=== PATIENT | female | born 1950 | race Caucasian/White ===

== ENCOUNTER 2017-07-28 01:20 | Inpatient (IN) | payer MEDICARE ==
[2017-07-28 01:55] LABS: #Lymphocytes 2.2 thou/uL (1.20-3.40); #Neutrophils 14.8 thou/uL (1.40-6.50); %Basophils 0.2 % (0.0-1.0); %Eosinophils 0.2 % (0.0-10.0); %Monocytes 5.5 % (0.0-10.0); Hematocrit 43.7 % (36.0-47.0); Mean Platelet Volume 8.1 fL (7.4-10.4); Red Blood Cell (RBC) Count 4.64 mill/uL (4.20-5.40)
[2017-07-28 02:15] LABS: ALT (SGPT) 11 U/L (8-55); AST (SGOT) 14 U/L (5-34); Alkaline Phosphatase 93 U/L (40-150); Anion Gap 14 mmol/L (10-20); BUN (Urea Nitrogen) 13 mg/dL (9.8-20.1); Bilirubin, Total 0.8 mg/dL (0.2-1.2); Calc. Creatinine Clearance 0 mL/min (70-130); Calcium 10.1 mg/dL (7.8-10.44); Carbon Dioxide 27 mmol/L (23-31); Chloride 97 mmol/L (98-107); Estimated GFR-MDRD 56; Globulin 3.9 g/dL (2.4-3.5); Protein, Total 7.8 g/dL (6.0-8.3)
[2017-07-28 02:32] LABS: Troponin I Less than 0.010 ng/mL (< 0.028)
[2017-07-28 04:16] VITALS: BMI 32.4
[2017-07-28] MEDS ORDERED: Acetaminophen 325 MG TAB PO PRN (04:56)
[2017-07-28] MEDS ORDERED: Ondansetron HCl/PF 4 MG/2 ML Vial IVP PRN (04:56)
[2017-07-28] MEDS ORDERED: Ondansetron ODT 4 MG TAB SL PRN (04:56)
--- NOTE | 2017-07-28 05:42 | PDOC.EVN ---
Event Note - Event Note Event Note: [id number] H&P Dictated 1. Possible Pneumonia 2. H/O HTN 3. H/O DM type 2 4. Rt side rib cage pain plan: see orders
[2017-07-28] MEDS ORDERED: Dextrose 50% Abboject 50 ML SYRINGE SLOW IVP PRN (06:23)
[2017-07-28] MEDS ORDERED: HumaLOG 300 UNITS/3 ML VIAL SC PRN (06:23)
[2017-07-28] MEDS ORDERED: Dextrose 5% in Water 1,000 ML IV PRN (06:23)
[2017-07-28] MEDS ORDERED: cefTRIAXone\\ROCEPHIN 1 GM in Sodium Chloride 0.9% 100 ML IVPB SCH (06:30)
--- NOTE | 2017-07-28 06:33 | HP ---
CHIEF COMPLAINT: Cough, rib pain. HISTORY OF PRESENT ILLNESS: The patient started having cough 2 weeks back. Cough persisted, cough is disturbing the sleep also. The patient cough persisted with sputum production, sputum green. Co mplains of chest congestion. The patient started having diffuse chest pain from the rib cage pain, more pronounced on the right side. The patient's pain is moderate to severe in intensity, worsened with coughing and breathing, denies any fever. Denies any chills. Denies any nausea, denies vomit ing, denies diarrhea, complaints of dyspnea with exertion and complains of some dizziness with the c ough also. PAST MEDICAL HISTORY: Diabetes type 2, hypertension, hyperlipidemia. PAST SURGICAL HISTORY: Appendectomy, hysterectomy. SOCIAL HISTORY: Positive for smoking, denies alcohol, denies any drugs. FAMILY HISTORY: Positive for heart problems. REVIEW OF SYSTEMS: CONSTITUTIONAL: Denies any fever, denies any chills. EYES: No vision problems. Ears, no hearing loss. No neck pain. CARDIOVASCULAR: Denies any chest pain. RESPIRATORY SYSTEM: Positive for pleurisy. Positive for cough, positive for sputum production. INTEGUMENT Denies any rash. PSYCHIATRIC: Denies anxiety. CRANIAL NERVE SYSTEM: Denies syncope. All other review of systems are reviewed and are negative. PHYSICAL EXAMINATION: VITAL SIGNS: At the time of H\T\P performed; temperature 98.3, pulse 80, respiration of 20, pulse o x 93% on 2 liters. Blood pressure 133/60. GENERAL: The patient appears comfortable. HEENT: Pupils equal, round, and react to light. ENT patent. Nose normal. Ears normal. Teeth in tact. Tongue is moist. NECK: Supple, no JVD. CARDIOVASCULAR: S1, S2 present. Regular rate and rhythm, no murmurs, no rubs, no gallops. RESPIRATORY SYSTEM: The right side, diminished breath sounds present. Positive for crackles. No w heezing, no rhonchi. GASTROINTESTINAL: Abdomen is soft, nontender, no guarding, no organomegaly, no masses felt. ABDOMEN: Soft, nontender, no guarding, no organomegaly, no masses felt. MUSCULOSKELETAL: No edema. INTEGUMENTARY: No rashes seen. PSYCHIATRIC: Mood is appropriate at this time. LABORATORY: Lab at the time of H\T\P performed; sodium 134, potassium 4.3, chloride 97, CO2 37, BUN of 13, creatinine 0.9, calcium 10.1, AST 14, ALT 11, alkaline phosphatase 93, serum total protein 7 .8, albumin 3.9. CBC; white count 18, platelet count is 287, hemoglobin 14.4. Chest x-ray, right-side possible infiltrate lower lobe, middle lobe. ASSESSMENT AND PLAN: The patient is 67 years old female. 1. Acute bronchitis with possible pneumonia. Plan to start patient on IV Rocephin and Zithromax. Plan to check CT chest to evaluate the infiltrate. We will monitor the patient closely. 2. Right-sided rib cage pain. Probably from the prolonged coughing. We will check serial cardiac enzymes. EKG, no acute ST changes. We will check repeat x-rays also. 3. History of hypertension. Monitor blood pressure. We will start the patient on blood pressure m edication. 4. History of diabetes type 2. Monitor blood sugars. We will do insulin sliding scale. 5. History of hyperlipidemia. Continue statins. The case was discussed in detail with the patient. The patient is full code.
[2017-07-28] MEDS ORDERED: Lisinopril 10 MG TAB PO SCH (09:00)
[2017-07-28] MEDS ORDERED: cefTRIAXone\\ROCEPHIN 1 GM, Admixture Fee 1 EACH in Sodium Chloride 0.9% 100 ML IVPB SCH (09:00)
[2017-07-28] MEDS: Sodium Chloride 0.9% 1,000 ML IV SCH (09:30)
[2017-07-28] MEDS: Heparin 5,000 UNITS/ML VIAL SC SCH ×3 (09:31→20:11)
[2017-07-28] MEDS: glyBURIDE 5 MG TAB PO SCH ×2 (09:31→20:11)
[2017-07-28] MEDS: Azithromycin 500 MG in Sodium Chloride 0.9% 250 ML 250 ML IVPB SCH (10:04)
--- NOTE | 2017-07-28 10:17 | PDOC.PN ---
- Subjective Encounter Start Date: 07/28/17 Encounter Start Time: 10:16 Patient seen and examined. No new complaints. No overnight events - Objective MAR Reviewed: Yes Vital Signs & Weight: Vital Signs (12 hours) Temp Pulse Resp BP BP Pulse Ox 07/28/17 09:31 116/58 L 07/28/17 04:11 98.3 F 80 20 126/60 93 L 07/28/17 04:10 98.3 F 80 20 93 L Weight Weight 171 lb 12.8 oz I&O: 07/27/17 07/28/17 07/29/17 06:59 06:59 06:59 Intake Total 100 Output Total 0 Balance 100 Result Diagrams: 07/28/17 01:47 07/28/17 01:47 Additional Labs: Accuchecks 07/28/17 06:02 POC Glucose 156 H EKG Reviewed by me: Yes (Tele SR) Phys Exam - Physical Examination Constitutional: NAD Respiratory: no wheezing Scar rhonchi/rales Cardiovascular: RRR, no rub Gastrointestinal: soft, non-tender, positive bowel sounds Musculoskeletal: no edema Neurological: non-focal, moves all 4 limbs Psychiatric: A&O x 3 Dx/Plan (1) Acute respiratory failure with hypoxia Code(s): J96.01 - ACUTE RESPIRATORY FAILURE WITH HYPOXIA Status: Acute Comment: due to Pneumonia (2) Sepsis due to pneumonia Code(s): J18.9 - PNEUMONIA, UNSPECIFIED ORGANISM; A41.9 - SEPSIS, UNSPECIFIED ORGANISM Status: Acute Comment: suspected Pneumococcus (3) Tobacco dependence Code(s): F17.200 - NICOTINE DEPENDENCE, UNSPECIFIED, UNCOMPLICATED Status: Chronic (4) DM2 (diabetes mellitus, type 2) Status: Chronic (5) HLD (hyperlipidemia) Code(s): E78.5 - HYPERLIPIDEMIA, UNSPECIFIED Status: Chronic (6) HTN (hypertension) Code(s): I10 - ESSENTIAL (PRIMARY) HYPERTENSION Status: Chronic - Plan cont current plan of care, continue antibiotics, DVT proph w/heparin, DVT proph w/SCDs * Admission/Pneumonia order set added * Add PRN meds/nebs * PSI score 65 * CURB 65 score 1 * Transfer to medical - No cardiac issues. No abnormal tele rhythm Review of Systems - Medications/Allergies Allergies/Adverse Reactions: Allergies Allergy/AdvReac Type Severity Reaction Status Date / Time No Known Allergies Allergy Unverified 07/28/17 04:21 Medications: Current Medications Acetaminophen (Tylenol) 650 mg PO Q4H PRN PRN Reason: Headache/Fever or Pain Stop: 07/28/17 14:45 Albuterol/Ipratropium (Duoneb) 3 ml NEB Q4H PRN PRN Reason: SOB &/or Wheezing Stop: 07/28/17 14:45 Atorvastatin Calcium (Lipitor) 10 mg PO HS [facility] Dextrose/Water (Dextrose 50%) 25 gm SLOW IVP PRN PRN PRN Reason: Hypoglycemia Glucagon (Glucagon) 1 mg IM PRN PRN PRN Reason: Hypoglycemia Glyburide (Diabeta) 5 mg PO BID [facility] Last Admin: 07/28/17 09:31 Dose: 5 mg Heparin Sodium (Porcine) (Heparin) 5,000 units SC TID [facility] Last Admin: 07/28/17 09:31 Dose: 5,000 units Azithromycin 500 mg/ Sodium (Chloride) 250 mls @ 250 mls/hr IVPB Q24HR [facility] Last Admin: 07/28/17 10:04 Dose: 250 mls Dextrose/Water (D5w) 1,000 mls @ 0 mls/hr IV .Q0M PRN; As Directed PRN Reason: Hypoglycemia Sodium Chloride (Normal Saline 0.9%) 1,000 mls @ 75 mls/hr IV .[id number] [facility] Last Admin: 07/28/17 09:30 Dose: 1,000 mls Ceftriaxone Sodium 1 gm/Miscellaneous Medication 1 each/ Sodium Chloride 100 mls @ 200 mls/hr IVPB Q24HR [facility] Insulin Human Lispro (Humalog) 0 units SC .MODERATE SLIDING SC PRN PRN Reason: Moderate Correctional Scale Insulin Human Lispro (Humalog) 0 units SC .BEDTIME SLIDING SC PRN PRN Reason: Bedtime Correctional Scale Lisinopril (Zestril) 10 mg PO DAILY [facility] Last Admin: 07/28/17 09:31 Dose: 10 mg Ondansetron HCl (Zofran) 4 mg IVP Q6H PRN PRN Reason: Nausea/Vomiting Stop: 07/28/17 14:45 Ondansetron HCl (Zofran Odt) 4 mg SL Q6H PRN PRN Reason: Nausea/Vomiting Stop: 07/28/17 14:45 Ondansetron HCl (Zofran Odt) 8 mg PO Q6HR [facility] Pantoprazole Sodium (Protonix) 40 mg PO DAILY [facility] Last Admin: 07/28/17 09:31 Dose: 40 mg Promethazine HCl (Phenergan) 25 mg PO Q4H PRN PRN Reason: Nausea Sodium Chloride (Flush - Normal Saline) 10 ml IVF Q12HR [facility] Last Admin: 07/28/17 09:32 Dose: 10 ml Sodium Chloride (Flush - Normal Saline) 10 ml IVF PRN PRN PRN Reason: Saline Flush
[2017-07-28] MEDS ORDERED: Nitroglycerin 0.4 MG TAB (25 Tab Bottle) PO PRN (10:19)
[2017-07-28] MEDS ORDERED: Ondansetron ODT 4 MG TAB PO PRN (10:19)
[2017-07-28] MEDS ORDERED: Senokot 8.6 MG TAB PO PRN (10:19)
[2017-07-28] MEDS ORDERED: hydrALAZINE 20 MG/ML VIAL SLOW IVP PRN (10:23)
[2017-07-28] MEDS ORDERED: guaiFENesin ER 600 MG TAB PO SCH (10:30)
--- NOTE | 2017-07-28 10:42 | CT ---
CT CHEST WITHOUT CONTRAST: History Pneumonia. Shortness of breath. Productive cough. COMPARISON: Chest radiograph same day. FINDINGS: There are patchy airspace opacities within the bilateral lower lobes as well as upper lobe, right mi ddle lobe, and lingula. This is predominantly within the right middle lobe. There are a few calcified granulomas. A few calcified lymph nodes. No pericardial effusion. Moderate atherosclerotic plaque of the aorta. Mild sliding hiatal hernia. The skeleton is unremarkable. IMPRESSION: Multifocal pneumonia. Followup radiographs after treatment recommended. POS: SUSANNE
--- NOTE | 2017-07-28 11:04 | RAD ---
TWO VIEW CHEST: COMPARISON: Frontal view chest 02/15/17. INDICATION: Cough. FINDINGS: There is patchy alveolar opacity of the lateral right lower lung zone. Granulomatous calcifications of the chest are again seen. Cardiac silhouette is normal in size. Vascular calcification is pres ent. The chest is otherwise stable-appearing. IMPRESSION: Focal area of pneumonia involving the inferolateral right lung zone. Recommend followup to resoldarlenei on. CODE T POS: SUSANNE
--- NOTE | 2017-07-28 11:22 | RAD ---
THREE VIEWS RIGHT RIBS: 07/28/2017 HISTORY: Cough. Possible right rib fracture. COMPARISON: Compared to chest x-ray on 07/28/2017 as well. FINDINGS: There is parenchymal opacity seen within the lateral right lung base, worrisome for a focal area of pneumonia. Followup to resolution is recommended. The right lung Is otherwise clear, and there is no pneumothorax or pleural effusion identified. No right-sided rib fracture is seen. There are vas cular calcifications seen in the thoracic aorta with degenerative changes in the spine. IMPRESSION: 1. Parenchymal changes right mid lung zone, which may be related to pneumonia. Followup to complet e resolution is recommended to exclude an underlying neoplastic process. 2. No right-sided rib fracture is identified. POS: SUSANNE
[2017-07-28] MEDS: Acetaminophen 325 MG TAB PO PRN ×2 (11:49→23:19)
[2017-07-28] MEDS: Ondansetron ODT 8 MG TAB PO SCH ×3 (12:55→23:16)
[2017-07-28] MEDS: Ondansetron HCl/PF 4 MG/2 ML Vial IVP PRN (14:24)
[2017-07-28] MEDS ORDERED: NICOTINE POLACRILEX 4 MG PO PRN (18:17)
[2017-07-28] MEDS ORDERED: [UNRECOGNIZED DRUG - OTHER] PO PRN (18:17)
[2017-07-28] MEDS: guaiFENesin ER 600 MG TAB PO SCH (20:10)
[2017-07-28] MEDS: Atorvastatin Calcium 10 MG TAB PO SCH (20:11)
[2017-07-28] MEDS ORDERED: Simvastatin 20 MG TAB PO SCH (21:00)
[2017-07-28] MEDS ORDERED: Famotidine 20 MG TAB PO SCH (21:00)
[2017-07-28] MEDS ORDERED: HYDROcodone/Acetaminophen 5/325 mg Tablet PO PRN (23:39)
[2017-07-29] MEDS: Sodium Chloride 0.9% 1,000 ML IV SCH ×3 (00:58→18:15)
[2017-07-29 05:36] LABS: #Basophils 0.1 thou/uL (0.0-0.2); #Eosinphils 0.1 thou/uL (0.0-0.7); #Lymphocytes 3.5 thou/uL (1.20-3.40); #Monocytes 0.8 thou/uL (0.11-0.59); #Neutrophils 6.5 thou/uL (1.40-6.50); %Basophils 0.7 % (0.0-1.0); %Eosinophils 1.1 % (0.0-10.0); %Lymphocytes 32.1 % (21.0-51.0); Hematocrit 36.8 % (36.0-47.0); Mean Platelet Volume 8.1 fL (7.4-10.4); Red Blood Cell (RBC) Count 3.83 mill/uL (4.20-5.40)
[2017-07-29] MEDS: Ondansetron ODT 8 MG TAB PO SCH ×4 (05:48→23:24)
[2017-07-29 06:07] LABS: ALT (SGPT) 15 U/L (8-55); AST (SGOT) 22 U/L (5-34); Alkaline Phosphatase 70 U/L (40-150); Anion Gap 11 mmol/L (10-20); BUN (Urea Nitrogen) 15 mg/dL (9.8-20.1); Bilirubin, Total 0.2 mg/dL (0.2-1.2); Calc. Creatinine Clearance 86 mL/min (70-130); Calcium 8.9 mg/dL (7.8-10.44); Carbon Dioxide 27 mmol/L (23-31); Chloride 107 mmol/L (98-107); Estimated GFR-MDRD 72; Globulin 3.2 g/dL (2.4-3.5); Protein, Total 6.2 g/dL (6.0-8.3)
[2017-07-29] MEDS: Azithromycin 500 MG in Sodium Chloride 0.9% 250 ML 250 ML IVPB SCH (06:39)
[2017-07-29] MEDS: guaiFENesin ER 600 MG TAB PO SCH ×2 (09:12→20:28)
[2017-07-29] MEDS: Heparin 5,000 UNITS/ML VIAL SC SCH ×3 (09:12→20:28)
--- NOTE | 2017-07-29 10:29 | PDOC.PN ---
- Subjective Encounter Start Date: 07/29/17 Encounter Start Time: 10:00 Subjective: is oriented well, no sob, is feeling better -: last fingerstick was 78 - Objective MAR Reviewed: Yes Vital Signs & Weight: Vital Signs (12 hours) Temp Pulse Resp BP BP Pulse Ox 07/29/17 07:45 96.2 F L 55 L 20 107/54 L 96 07/29/17 05:15 97.4 F L 66 18 134/60 98 07/29/17 00:00 98.9 F 73 20 139/63 96 Weight Admit Weight 171 lb 12.8 oz Weight 171 lb 12.8 oz I&O: 07/28/17 07/29/17 07/30/17 06:59 06:59 06:59 Intake Total 100 2094 Output Total 0 300 Balance 100 1794 Result Diagrams: 07/29/17 05:14 07/29/17 05:14 Additional Labs: Accuchecks 07/29/17 07/29/17 07/29/17 05:50 05:13 00:34 POC Glucose 78 41 L* 99 07/28/17 07/28/17 07/28/17 23:48 21:01 20:11 POC Glucose 54 L* 63 L 67 L 07/28/17 07/28/17 17:53 11:17 POC Glucose 85 161 H Phys Exam - Physical Examination HEENT: PERRLA, sclera anicteric Neck: no JVD, supple Respiratory: no wheezing, no rales rhonchi+ Cardiovascular: RRR, no significant murmur Gastrointestinal: soft, non-tender, positive bowel sounds Musculoskeletal: no edema, pulses present Neurological: non-focal, moves all 4 limbs Psychiatric: A&O x 3 Dx/Plan (1) PNA (pneumonia) Code(s): J18.9 - PNEUMONIA, UNSPECIFIED ORGANISM Status: Acute Qualifiers: Pneumonia type: due to unspecified organism Laterality: bilateral (2) Sepsis due to pneumonia Code(s): J18.9 - PNEUMONIA, UNSPECIFIED ORGANISM; A41.9 - SEPSIS, UNSPECIFIED ORGANISM Status: Acute Comment: suspected Pneumococcus (3) DM2 (diabetes mellitus, type 2) Status: Chronic Qualifiers: Diabetes mellitus complication status: with hypoglycemia Diabetes mellitus complication detail: without coma Diabetes mellitus alf insulin use: without alf use Qualified Code(s): E11.649 - Type 2 diabetes mellitus with hypoglycemia without coma (4) HLD (hyperlipidemia) Code(s): E78.5 - HYPERLIPIDEMIA, UNSPECIFIED Status: Chronic Qualifiers: Hyperlipidemia type: unspecified Qualified Code(s): E78.5 - Hyperlipidemia , unspecified (5) HTN (hypertension) Code(s): I10 - ESSENTIAL (PRIMARY) HYPERTENSION Status: Chronic Qualifiers: Hypertension type: essential hypertension Qualified Code(s): I10 - Essential (primary) hypertension (6) Tobacco dependence Code(s): F17.200 - NICOTINE DEPENDENCE, UNSPECIFIED, UNCOMPLICATED Status: Chronic - Plan is on ceftriaxone and zithromax -: nebs, may add steroids if she gets hypoglycemic again -: encouraged to eat better with fingerstick dipping into 40's -: off glyburide from am -: to ambulate in hallway * . Review of Systems - Medications/Allergies Allergies/Adverse Reactions: Allergies Allergy/AdvReac Type Severity Reaction Status Date / Time No Known Allergies Allergy Unverified 07/28/17 04:21 Medications: Current Medications Acetaminophen (Tylenol) 650 mg PO Q4H PRN PRN Reason: Headache/Fever or Pain Last Admin: 07/28/17 23:19 Dose: 650 mg Hydrocodone Bitart/Acetaminophen ([place] 5/325) 1 tab PO Q4H PRN PRN Reason: Moderate Pain (4-6) Albuterol/Ipratropium (Duoneb) 3 ml NEB [id number] PRN PRN Reason: SOB &/or Wheezing Last Admin: 07/29/17 00:56 Dose: 3 ml Atorvastatin Calcium (Lipitor) 10 mg PO HS [facility] Last Admin: 07/28/17 20:11 Dose: 10 mg Dextrose/Water (Dextrose 50%) 25 gm SLOW IVP PRN PRN PRN Reason: Hypoglycemia Glucagon (Glucagon) 1 mg IM PRN PRN PRN Reason: Hypoglycemia Guaifenesin (Mucinex) 600 mg PO Q12HR [facility] Last Admin: 07/28/17 20:10 Dose: 600 mg Heparin Sodium (Porcine) (Heparin) 5,000 units SC TID [facility] Last Admin: 07/28/17 20:11 Dose: 5,000 units Hydralazine HCl (Apresoline) 10 mg SLOW IVP Q4H PRN PRN Reason: SBP Greater Than 180 Azithromycin 500 mg/ Sodium (Chloride) 250 mls @ 250 mls/hr IVPB Q24HR [facility] Last Admin: 07/29/17 06:39 Dose: 250 mls Dextrose/Water (D5w) 1,000 mls @ 0 mls/hr IV .Q0M PRN; As Directed PRN Reason: Hypoglycemia Sodium Chloride (Normal Saline 0.9%) 1,000 mls @ 75 mls/hr IV .[id number] [facility] Last Admin: 07/29/17 00:58 Dose: 1,000 mls Ceftriaxone Sodium 1 gm/Miscellaneous Medication 1 each/ Sodium Chloride 100 mls @ 200 mls/hr IVPB 1200 [facility] Insulin Human Lispro (Humalog) 0 units SC .MODERATE SLIDING SC PRN PRN Reason: Moderate Correctional Scale Insulin Human Lispro (Humalog) 0 units SC .BEDTIME SLIDING SC PRN PRN Reason: Bedtime Correctional Scale Nitroglycerin (Nitrostat) 0.4 mg PO Q5MIN PRN PRN Reason: Chest Pain Ondansetron HCl (Zofran Odt) 8 mg PO Q6HR [facility] Last Admin: 07/29/17 05:48 Dose: 8 mg Ondansetron HCl (Zofran Odt) 4 mg PO Q6H PRN PRN Reason: Nausea/Vomiting Ondansetron HCl (Zofran) 4 mg IVP Q6H PRN PRN Reason: Nausea/Vomiting Last Admin: 07/28/17 14:24 Dose: 4 mg Pantoprazole Sodium (Protonix) 40 mg PO DAILY [facility] Last Admin: 07/28/17 09:31 Dose: 40 mg Promethazine HCl (Phenergan) 25 mg PO Q4H PRN PRN Reason: Nausea Senna (Senokot) 2 tab PO HSPRN PRN PRN Reason: Constipation Sodium Chloride (Flush - Normal Saline) 10 ml IVF Q12HR [facility] Last Admin: 07/28/17 20:15 Dose: 10 ml Sodium Chloride (Flush - Normal Saline) 10 ml IVF PRN PRN PRN Reason: Saline Flush
[2017-07-29] MEDS: cefTRIAXone\\ROCEPHIN 1 GM, Admixture Fee 1 EACH in Sodium Chloride 0.9% 100 ML IVPB SCH (11:31)
[2017-07-29] MEDS: Ondansetron HCl/PF 4 MG/2 ML Vial IVP PRN (14:01)
[2017-07-29] MEDS: Atorvastatin Calcium 10 MG TAB PO SCH (20:28)
[2017-07-30] MEDS: Ondansetron ODT 8 MG TAB PO SCH ×2 (06:22→12:16)
[2017-07-30] MEDS: Azithromycin 500 MG in Sodium Chloride 0.9% 250 ML 250 ML IVPB SCH (06:23)
[2017-07-30] MEDS: guaiFENesin ER 600 MG TAB PO SCH ×2 (08:43→20:22)
[2017-07-30] MEDS: Heparin 5,000 UNITS/ML VIAL SC SCH ×3 (08:44→20:23)
[2017-07-30] MEDS: Sodium Chloride 0.9% 1,000 ML IV SCH ×2 (08:45→23:30)
--- NOTE | 2017-07-30 09:20 | PDOC.PN ---
- Subjective Encounter Start Date: 07/30/17 Encounter Start Time: 09:00 Subjective: is oriented, says has loss of appetite -: breathing better, still has cough -: no chest pain - Objective MAR Reviewed: Yes Vital Signs & Weight: Vital Signs (12 hours) Temp Pulse Resp BP Pulse Ox 07/30/17 09:01 95 07/30/17 08:59 78 16 07/30/17 07:35 98.1 F 84 18 109/51 L 98 07/30/17 07:24 98.1 F 84 16 109/51 L 98 07/30/17 05:11 100 07/30/17 04:30 99.0 F 07/30/17 04:00 100.2 F H 85 20 118/58 L 97 07/30/17 00:00 99 07/29/17 23:40 99.5 F 87 18 121/56 L 99 07/29/17 23:27 99 Weight Admit Weight 171 lb 12.8 oz Weight 171 lb 12.8 oz I&O: 07/29/17 07/30/17 07/31/17 06:59 06:59 06:59 Intake Total 2094 240 Output Total 300 Balance 1794 240 Result Diagrams: 07/29/17 05:14 07/29/17 05:14 Additional Labs: Accuchecks 07/30/17 07/29/17 07/29/17 04:14 21:22 20:31 POC Glucose 79 129 H 50 L* 07/29/17 07/29/17 17:15 11:17 POC Glucose 97 148 H Phys Exam - Physical Examination HEENT: PERRLA, moist MMs Neck: no JVD, supple Respiratory: no rales, wheezing present Cardiovascular: RRR, no rub Gastrointestinal: soft, non-tender, positive bowel sounds Musculoskeletal: no edema, pulses present Neurological: non-focal, moves all 4 limbs Psychiatric: A&O x 3 Dx/Plan (1) PNA (pneumonia) Code(s): J18.9 - PNEUMONIA, UNSPECIFIED ORGANISM Status: Acute Qualifiers: Pneumonia type: due to unspecified organism Laterality: bilateral (2) Sepsis due to pneumonia Code(s): J18.9 - PNEUMONIA, UNSPECIFIED ORGANISM; A41.9 - SEPSIS, UNSPECIFIED ORGANISM Status: Acute Comment: suspected Pneumococcus (3) DM2 (diabetes mellitus, type 2) Status: Chronic Qualifiers: Diabetes mellitus complication status: with hypoglycemia Diabetes mellitus complication detail: without coma Diabetes mellitus senior living insulin use: without terminal press operator use Qualified Code(s): E11.649 - Type 2 diabetes mellitus with hypoglycemia without coma (4) HLD (hyperlipidemia) Code(s): E78.5 - HYPERLIPIDEMIA, UNSPECIFIED Status: Chronic Qualifiers: Hyperlipidemia type: unspecified Qualified Code(s): E78.5 - Hyperlipidemia , unspecified (5) HTN (hypertension) Code(s): I10 - ESSENTIAL (PRIMARY) HYPERTENSION Status: Chronic Qualifiers: Hypertension type: essential hypertension Qualified Code(s): I10 - Essential (primary) hypertension (6) Tobacco dependence Code(s): F17.200 - NICOTINE DEPENDENCE, UNSPECIFIED, UNCOMPLICATED Status: Chronic (7) COPD exacerbation Code(s): J44.1 - CHRONIC OBSTRUCTIVE PULMONARY DISEASE W (ACUTE) EXACERBATION Status: Acute - Plan add steroids iv for copd exac -: is on zithro and ceftri -: duonebs -: to amb more -: dc plan in 24-36hrs * . Review of Systems - Medications/Allergies Allergies/Adverse Reactions: Allergies Allergy/AdvReac Type Severity Reaction Status Date / Time No Known Allergies Allergy Unverified 07/28/17 04:21 Medications: Current Medications Acetaminophen (Tylenol) 650 mg PO Q4H PRN PRN Reason: Headache/Fever or Pain Last Admin: 07/28/17 23:19 Dose: 650 mg Hydrocodone Bitart/Acetaminophen ([place] 5/325) 1 tab PO Q4H PRN PRN Reason: Moderate Pain (4-6) Last Admin: 07/30/17 04:33 Dose: 1 tab Albuterol/Ipratropium (Duoneb) 3 ml NEB [id number] [facility] Last Admin: 07/30/17 08:59 Dose: 3 ml Atorvastatin Calcium (Lipitor) 10 mg PO HS [facility] Last Admin: 07/29/17 20:28 Dose: 10 mg Dextrose/Water (Dextrose 50%) 25 gm SLOW IVP PRN PRN PRN Reason: Hypoglycemia Glucagon (Glucagon) 1 mg IM PRN PRN PRN Reason: Hypoglycemia Guaifenesin (Mucinex) 600 mg PO Q12HR [facility] Last Admin: 07/30/17 08:43 Dose: 600 mg Heparin Sodium (Porcine) (Heparin) 5,000 units SC TID [facility] Last Admin: 07/30/17 08:44 Dose: 5,000 units Hydralazine HCl (Apresoline) 10 mg SLOW IVP Q4H PRN PRN Reason: SBP Greater Than 180 Azithromycin 500 mg/ Sodium (Chloride) 250 mls @ 250 mls/hr IVPB Q24HR [facility] Last Admin: 07/30/17 06:23 Dose: 250 mls Dextrose/Water (D5w) 1,000 mls @ 0 mls/hr IV .Q0M PRN; As Directed PRN Reason: Hypoglycemia Sodium Chloride (Normal Saline 0.9%) 1,000 mls @ 75 mls/hr IV .[id number] [facility] Last Admin: 07/30/17 08:45 Dose: 1,000 mls Ceftriaxone Sodium 1 gm/Miscellaneous Medication 1 each/ Sodium Chloride 100 mls @ 200 mls/hr IVPB 1200 [facility] Last Admin: 07/29/17 11:31 Dose: 100 mls Insulin Human Lispro (Humalog) 0 units SC .MODERATE SLIDING SC PRN PRN Reason: Moderate Correctional Scale Insulin Human Lispro (Humalog) 0 units SC .BEDTIME SLIDING SC PRN PRN Reason: Bedtime Correctional Scale Methylprednisolone Sodium Succinate (Solu-Medrol) 20 mg IVP Q8HR [facility] Nitroglycerin (Nitrostat) 0.4 mg PO Q5MIN PRN PRN Reason: Chest Pain Ondansetron HCl (Zofran Odt) 8 mg PO Q6HR [facility] Last Admin: 07/30/17 06:22 Dose: 8 mg Ondansetron HCl (Zofran Odt) 4 mg PO Q6H PRN PRN Reason: Nausea/Vomiting Ondansetron HCl (Zofran) 4 mg IVP Q6H PRN PRN Reason: Nausea/Vomiting Last Admin: 07/29/17 14:01 Dose: 4 mg Pantoprazole Sodium (Protonix) 40 mg PO DAILY [facility] Last Admin: 07/30/17 08:43 Dose: 40 mg Promethazine HCl (Phenergan) 25 mg PO Q4H PRN PRN Reason: Nausea Senna (Senokot) 2 tab PO HSPRN PRN PRN Reason: Constipation Sodium Chloride (Flush - Normal Saline) 10 ml IVF Q12HR [facility] Last Admin: 07/30/17 09:19 Dose: Not Given Sodium Chloride (Flush - Normal Saline) 10 ml IVF PRN PRN PRN Reason: Saline Flush
[2017-07-30] MEDS: cefTRIAXone\\ROCEPHIN 1 GM, Admixture Fee 1 EACH in Sodium Chloride 0.9% 100 ML IVPB SCH (12:17)
[2017-07-30] MEDS: HumaLOG 300 UNITS/3 ML VIAL SC PRN (20:20)
[2017-07-30] MEDS: Atorvastatin Calcium 10 MG TAB PO SCH (20:22)
[2017-07-31] MEDS: Azithromycin 500 MG in Sodium Chloride 0.9% 250 ML 250 ML IVPB SCH (06:22)
[2017-07-31] MEDS: Heparin 5,000 UNITS/ML VIAL SC SCH ×3 (08:01→21:36)
[2017-07-31] MEDS: predniSONE 20 MG TAB PO SCH (08:01)
[2017-07-31] MEDS: guaiFENesin ER 600 MG TAB PO SCH ×2 (08:01→21:25)
--- NOTE | 2017-07-31 09:30 | PDOC.PN ---
- Subjective Encounter Start Date: 07/31/17 Encounter Start Time: 09:00 Subjective: feels better, still has cough -: no wheezing now after starting steroids - Objective MAR Reviewed: Yes Vital Signs & Weight: Vital Signs (12 hours) Temp Pulse Resp BP Pulse Ox 07/31/17 08:01 98.2 F 95 18 96 07/31/17 07:58 98.2 F 95 18 125/60 96 07/31/17 06:33 100 07/31/17 06:30 75 14 100 07/31/17 04:14 98.1 F 80 18 135/63 95 Weight Admit Weight 171 lb 12.8 oz Weight 171 lb 12.8 oz I&O: 07/30/17 07/31/17 08/01/17 06:59 06:59 06:59 Intake Total 240 1960 Balance 240 1959 Result Diagrams: 07/29/17 05:14 07/29/17 05:14 Additional Labs: Accuchecks 07/31/17 07/30/17 07/30/17 05:13 21:21 20:15 POC Glucose 107 405 H 419 H 07/30/17 07/30/17 16:18 11:44 POC Glucose 205 H 179 H Phys Exam - Physical Examination HEENT: PERRLA, moist MMs Neck: no JVD, supple Respiratory: no wheezing, no rales rhonchi+ Cardiovascular: RRR, no significant murmur Gastrointestinal: soft, non-tender, positive bowel sounds Musculoskeletal: no edema, pulses present Neurological: non-focal, moves all 4 limbs Psychiatric: A&O x 3 Dx/Plan (1) PNA (pneumonia) Code(s): J18.9 - PNEUMONIA, UNSPECIFIED ORGANISM Status: Acute Qualifiers: Pneumonia type: due to unspecified organism Laterality: bilateral (2) Sepsis due to pneumonia Code(s): J18.9 - PNEUMONIA, UNSPECIFIED ORGANISM; A41.9 - SEPSIS, UNSPECIFIED ORGANISM Status: Acute Comment: suspected Pneumococcus (3) DM2 (diabetes mellitus, type 2) Status: Chronic Qualifiers: Diabetes mellitus complication status: with hypoglycemia Diabetes mellitus complication detail: without coma Diabetes mellitus penitentiary insulin use: without penitentiary use Qualified Code(s): E11.649 - Type 2 diabetes mellitus with hypoglycemia without coma (4) HLD (hyperlipidemia) Code(s): E78.5 - HYPERLIPIDEMIA, UNSPECIFIED Status: Chronic Qualifiers: Hyperlipidemia type: unspecified Qualified Code(s): E78.5 - Hyperlipidemia , unspecified (5) HTN (hypertension) Code(s): I10 - ESSENTIAL (PRIMARY) HYPERTENSION Status: Chronic Qualifiers: Hypertension type: essential hypertension Qualified Code(s): I10 - Essential (primary) hypertension (6) Tobacco dependence Code(s): F17.200 - NICOTINE DEPENDENCE, UNSPECIFIED, UNCOMPLICATED Status: Chronic (7) COPD exacerbation Code(s): J44.1 - CHRONIC OBSTRUCTIVE PULMONARY DISEASE W (ACUTE) EXACERBATION Status: Acute - Plan copd flare up is resolving -: taper steroids -: dm is labile, will start back on her meds with diet -: dc plan in am * . Review of Systems - Medications/Allergies Allergies/Adverse Reactions: Allergies Allergy/AdvReac Type Severity Reaction Status Date / Time No Known Allergies Allergy Unverified 07/28/17 04:21 Medications: Current Medications Acetaminophen (Tylenol) 650 mg PO Q4H PRN PRN Reason: Headache/Fever or Pain Last Admin: 07/28/17 23:19 Dose: 650 mg Hydrocodone Bitart/Acetaminophen ([place] 5/325) 1 tab PO Q4H PRN PRN Reason: Moderate Pain (4-6) Last Admin: 07/30/17 04:33 Dose: 1 tab Albuterol/Ipratropium (Duoneb) 3 ml NEB [id number] [facility] Last Admin: 07/31/17 06:30 Dose: 3 ml Atorvastatin Calcium (Lipitor) 10 mg PO HS [facility] Last Admin: 07/30/17 20:22 Dose: 10 mg Dextrose/Water (Dextrose 50%) 25 gm SLOW IVP PRN PRN PRN Reason: Hypoglycemia Glucagon (Glucagon) 1 mg IM PRN PRN PRN Reason: Hypoglycemia Guaifenesin (Mucinex) 600 mg PO Q12HR [facility] Last Admin: 07/31/17 08:01 Dose: 600 mg Heparin Sodium (Porcine) (Heparin) 5,000 units SC TID [facility] Last Admin: 07/31/17 08:01 Dose: 5,000 units Hydralazine HCl (Apresoline) 10 mg SLOW IVP Q4H PRN PRN Reason: SBP Greater Than 180 Azithromycin 500 mg/ Sodium (Chloride) 250 mls @ 250 mls/hr IVPB Q24HR [facility] Last Admin: 10/23/17 06:22 Dose: 250 mls Dextrose/Water (D5w) 1,000 mls @ 0 mls/hr IV .Q0M PRN; As Directed PRN Reason: Hypoglycemia Sodium Chloride (Normal Saline 0.9%) 1,000 mls @ 75 mls/hr IV .[id number] [facility] Last Admin: 07/30/17 23:30 Dose: 1,000 mls Ceftriaxone Sodium 1 gm/Miscellaneous Medication 1 each/ Sodium Chloride 100 mls @ 200 mls/hr IVPB 1200 [facility] Last Admin: 07/30/17 12:17 Dose: 100 mls Insulin Human Lispro (Humalog) 0 units SC .MODERATE SLIDING SC PRN PRN Reason: Moderate Correctional Scale Last Admin: 07/30/17 20:20 Dose: 10 unit Nitroglycerin (Nitrostat) 0.4 mg PO Q5MIN PRN PRN Reason: Chest Pain Ondansetron HCl (Zofran Odt) 4 mg PO Q6H PRN PRN Reason: Nausea/Vomiting Ondansetron HCl (Zofran) 4 mg IVP Q6H PRN PRN Reason: Nausea/Vomiting Last Admin: 07/29/17 14:01 Dose: 4 mg Pantoprazole Sodium (Protonix) 40 mg PO DAILY [facility] Last Admin: 07/31/17 08:01 Dose: 40 mg Prednisone (Prednisone) 10 mg PO QAM-[facility] Last Admin: 07/31/17 08:01 Dose: 10 mg Promethazine HCl (Phenergan) 25 mg PO Q4H PRN PRN Reason: Nausea Senna (Senokot) 2 tab PO HSPRN PRN PRN Reason: Constipation Sodium Chloride (Flush - Normal Saline) 10 ml IVF Q12HR [facility] Last Admin: 07/31/17 08:07 Dose: 10 ml Sodium Chloride (Flush - Normal Saline) 10 ml IVF PRN PRN PRN Reason: Saline Flush
[2017-07-31] MEDS ORDERED: glyBURIDE 5 MG TAB PO SCH (10:15)
[2017-07-31] MEDS: cefTRIAXone\\ROCEPHIN 1 GM, Admixture Fee 1 EACH in Sodium Chloride 0.9% 100 ML IVPB SCH (12:48)
[2017-07-31] MEDS: HumaLOG 300 UNITS/3 ML VIAL SC PRN ×2 (12:49→18:17)
[2017-07-31] MEDS ORDERED: Phytonadione 10 MG/ML AMP PO SCH (19:30)
[2017-07-31] MEDS: Atorvastatin Calcium 10 MG TAB PO SCH (21:25)
[2017-08-01] MEDS: Azithromycin 500 MG in Sodium Chloride 0.9% 250 ML 250 ML IVPB SCH (06:47)
[2017-08-01] MEDS ORDERED: glyBURIDE 5 MG TAB PO SCH (08:00)
[2017-08-01 08:13] VITALS: BP 126/72; TEMP 97.4
--- NOTE | 2017-08-01 09:05 | PDOC.PN ---
- Subjective Encounter Start Date: 08/01/17 Encounter Start Time: 09:00 Subjective: feels better, no sob - Objective MAR Reviewed: Yes Vital Signs & Weight: Vital Signs (12 hours) Temp Pulse Resp BP Pulse Ox 08/01/17 07:41 80 14 08/01/17 07:35 97.4 F L 72 18 126/72 95 07/31/17 22:11 99 16 99 Weight Admit Weight 171 lb 12.8 oz Weight 171 lb 12.8 oz I&O: 07/31/17 08/01/17 08/02/17 06:59 06:59 06:59 Intake Total 1960 1375 Balance 1960 1375 Result Diagrams: 07/29/17 05:14 07/29/17 05:14 Additional Labs: Accuchecks 08/01/17 07/31/17 07/31/17 05:49 20:22 16:18 POC Glucose 91 149 H 332 H 07/31/17 11:37 POC Glucose 321 H Phys Exam - Physical Examination HEENT: PERRLA, moist MMs Neck: no JVD, supple Respiratory: no wheezing, no rales Cardiovascular: RRR, no significant murmur Gastrointestinal: soft, non-tender, positive bowel sounds Musculoskeletal: no edema, pulses present Neurological: non-focal, moves all 4 limbs Psychiatric: A&O x 3 Dx/Plan (1) PNA (pneumonia) Code(s): J18.9 - PNEUMONIA, UNSPECIFIED ORGANISM Status: Acute Qualifiers: Pneumonia type: due to unspecified organism Laterality: bilateral (2) Sepsis due to pneumonia Code(s): J18.9 - PNEUMONIA, UNSPECIFIED ORGANISM; A41.9 - SEPSIS, UNSPECIFIED ORGANISM Status: Acute Comment: suspected Pneumococcus (3) DM2 (diabetes mellitus, type 2) Status: Chronic Qualifiers: Diabetes mellitus complication status: with hypoglycemia Diabetes mellitus complication detail: without coma Diabetes mellitus intermission coordinator insulin use: without chcf use Qualified Code(s): E11.649 - Type 2 diabetes mellitus with hypoglycemia without coma (4) HLD (hyperlipidemia) Code(s): E78.5 - HYPERLIPIDEMIA, UNSPECIFIED Status: Chronic Qualifiers: Hyperlipidemia type: unspecified Qualified Code(s): E78.5 - Hyperlipidemia , unspecified (5) HTN (hypertension) Code(s): I10 - ESSENTIAL (PRIMARY) HYPERTENSION Status: Chronic Qualifiers: Hypertension type: essential hypertension Qualified Code(s): I10 - Essential (primary) hypertension (6) Tobacco dependence Code(s): F17.200 - NICOTINE DEPENDENCE, UNSPECIFIED, UNCOMPLICATED Status: Chronic (7) COPD exacerbation Code(s): J44.1 - CHRONIC OBSTRUCTIVE PULMONARY DISEASE W (ACUTE) EXACERBATION Status: Acute - Plan hemostable -: omnicef for 1 week, prednisone for 4 days -: dc pt home * . Review of Systems - Medications/Allergies Allergies/Adverse Reactions: Allergies Allergy/AdvReac Type Severity Reaction Status Date / Time No Known Allergies Allergy Unverified 07/28/17 04:21 Medications: Current Medications Acetaminophen (Tylenol) 650 mg PO Q4H PRN PRN Reason: Headache/Fever or Pain Last Admin: 07/28/17 23:19 Dose: 650 mg Hydrocodone Bitart/Acetaminophen ([place] 5/325) 1 tab PO Q4H PRN PRN Reason: Moderate Pain (4-6) Last Admin: 07/30/17 04:33 Dose: 1 tab Albuterol/Ipratropium (Duoneb) 3 ml NEB [id number] [facility] Last Admin: 08/01/17 07:41 Dose: 3 ml Atorvastatin Calcium (Lipitor) 10 mg PO HS [facility] Last Admin: 07/31/17 21:25 Dose: 10 mg Dextrose/Water (Dextrose 50%) 25 gm SLOW IVP PRN PRN PRN Reason: Hypoglycemia Glucagon (Glucagon) 1 mg IM PRN PRN PRN Reason: Hypoglycemia Glyburide (Diabeta) 5 mg PO QAM-[facility] Guaifenesin (Mucinex) 600 mg PO Q12HR [facility] Last Admin: 07/31/17 21:25 Dose: 600 mg Heparin Sodium (Porcine) (Heparin) 5,000 units SC TID [facility] Last Admin: 07/31/17 21:36 Dose: Not Given Hydralazine HCl (Apresoline) 10 mg SLOW IVP Q4H PRN PRN Reason: SBP Greater Than 180 Azithromycin 500 mg/ Sodium (Chloride) 250 mls @ 250 mls/hr IVPB Q24HR [facility] Last Admin: 08/01/17 06:47 Dose: 250 mls Dextrose/Water (D5w) 1,000 mls @ 0 mls/hr IV .Q0M PRN; As Directed PRN Reason: Hypoglycemia Ceftriaxone Sodium 1 gm/Miscellaneous Medication 1 each/ Sodium Chloride 100 mls @ 200 mls/hr IVPB 1200 [facility] Last Admin: 07/31/17 12:48 Dose: 100 mls Insulin Human Lispro (Humalog) 0 units SC .MODERATE SLIDING SC PRN PRN Reason: Moderate Correctional Scale Last Admin: 07/31/17 18:17 Dose: 8 unit Nitroglycerin (Nitrostat) 0.4 mg PO Q5MIN PRN PRN Reason: Chest Pain Ondansetron HCl (Zofran Odt) 4 mg PO Q6H PRN PRN Reason: Nausea/Vomiting Ondansetron HCl (Zofran) 4 mg IVP Q6H PRN PRN Reason: Nausea/Vomiting Last Admin: 07/29/17 14:01 Dose: 4 mg Pantoprazole Sodium (Protonix) 40 mg PO DAILY [facility] Last Admin: 07/31/17 08:01 Dose: 40 mg Prednisone (Prednisone) 10 mg PO QAM-[facility] Last Admin: 07/31/17 08:01 Dose: 10 mg Promethazine HCl (Phenergan) 25 mg PO Q4H PRN PRN Reason: Nausea Senna (Senokot) 2 tab PO HSPRN PRN PRN Reason: Constipation Sodium Chloride (Flush - Normal Saline) 10 ml IVF Q12HR [facility] Last Admin: 07/31/17 21:30 Dose: 10 ml Sodium Chloride (Flush - Normal Saline) 10 ml IVF PRN PRN PRN Reason: Saline Flush
[2017-08-01] MEDS: Heparin 5,000 UNITS/ML VIAL SC SCH (09:26)
[2017-08-01] MEDS: guaiFENesin ER 600 MG TAB PO SCH (09:26)
[2017-08-01] MEDS: predniSONE 20 MG TAB PO SCH (09:26)
--- NOTE | 2017-08-01 13:08 | DIS ---
DATE OF ADMISSION: 07/28/2017 DATE OF DISCHARGE: 08/01/2017 DISCHARGE DISPOSITION: To home. PRIMARY DISCHARGE DIAGNOSES: Right lung pneumonia, sepsis due to pneumonia, acute chronic obstructi ve pulmonary disease exacerbation with tobacco abuse, diabetes mellitus type 2, dyslipidemia, and hy pertension. PROCEDURES DONE DURING HOSPITALIZATION: The patient has had CT chest done on 07/28/2017, which show ed multifocal pneumonia. Blood cultures x2 no growth. Had white count of 18 with 82% neutrophils o n the day of admission. DISCHARGE MEDICATIONS: Omnicef 300 mg p.o. twice daily for 7 days, prednisone 5 mg p.o. daily for a nother 4 days, glyburide 5 mg p.o. twice daily, simvastatin 20 mg p.o. at bedtime, Protonix 40 mg p. o. daily, lisinopril 10 mg p.o. daily, and albuterol inhaler q.4 hourly p.r.n. ALLERGIES: No known drug allergies. DISCHARGE PLAN: Patient to follow up with primary care physician in 1 week. BRIEF COURSE DURING HOSPITALIZATION: Patient initially came in with complaints of cough with expect oration and right ribcage pain. Her sputum was green in color. Initial chest x-ray and CT scan of the chest showed multifocal pneumonia. Patient has ongoing history of smoking. She was also in [employer]AFF [employer] D exacerbation as well. She was placed on broad spectrum antibiotics along with steroids and DuoNeb s. She has done remarkably well. Prior to discharge, she is eating and ambulating. She was counse led regarding smoking cessation. She needs to follow up with primary care physician in 1 week. Ple ase see a face to face documentation on [email or web address] for the day of discharge.
== END 2017-08-01 10:12 | disposition home or self-care (01) | DRG 871 ==
LOC: ERS 01:20 → 2NO 02:58 → ONC 13:35
PROVIDERS: ADMIT Internal Medicine; ATTEND Internal Medicine
DX: A40.3 Sepsis due to Streptococcus pneumoniae (principal); J18.9 Pneumonia, unspecified organism; E11.649 Type 2 diabetes mellitus with hypoglycemia without coma; J44.0 Chronic obstructive pulmonary disease with (acute) lower respiratory infection; J44.1 Chronic obstructive pulmonary disease with (acute) exacerbation; I10 Essential (primary) hypertension; E78.5 Hyperlipidemia, unspecified; F17.210 Nicotine dependence, cigarettes, uncomplicated
CPT/HCPCS: 36415; 36416; 71020; 71250; 80053; 82553; 84484; 85025; 87040; 93005; 94640; 94760; 96365; A4216; G8996-GN-CI; G8997-GN-CI; J0456; J0696; J1644; J1956; J2405; J2920; J3430; J7050; J7506; J7620

== ENCOUNTER 2017-10-22 13:17 | Emergency (ER) | payer MEDICARE ==
[2017-10-22] MEDS ORDERED: Cyclobenzaprine 10 MG TAB ONE (13:58)
--- NOTE | 2017-10-22 14:56 | RAD ---
BILATERAL AC JOINTS: Date: 10/22/17 HISTORY: 67-year-old female with right shoulder pain. FINDINGS: AP views of right and left AC joints with and without weights demonstrate no evidence for AC separati on. No acute fracture or dislocation. IMPRESSION: No evidence for AC separation or acute fracture or dislocation. POS: [facility]
== END 2017-10-22 14:45 | disposition home or self-care (01) ==
LOC: ERS 13:17
DX: S43.51XA Sprain of right acromioclavicular joint, initial encounter (principal); E11.9 Type 2 diabetes mellitus without complications; E78.5 Hyperlipidemia, unspecified; I10 Essential (primary) hypertension; F17.210 Nicotine dependence, cigarettes, uncomplicated; Z79.899 Other long term (current) drug therapy; X50.9XXA Other and unspecified overexertion or strenuous movements or postures, initial encounter
CPT/HCPCS: 73050

== ENCOUNTER 2017-11-28 16:45 | Emergency (ER) | payer MEDICARE ==
[2017-11-28] MEDS ORDERED: Ibuprofen 200 MG TAB ONE (17:11)
== END 2017-11-28 17:33 | disposition home or self-care (01) ==
LOC: ERS 16:45
DX: S50.02XA Contusion of left elbow, initial encounter (principal); S50.01XA Contusion of right elbow, initial encounter; S80.02XA Contusion of left knee, initial encounter; S80.01XA Contusion of right knee, initial encounter; W18.30XA Fall on same level, unspecified, initial encounter
CPT/HCPCS: 36416; 99283

== ENCOUNTER 2017-12-20 15:24 | Emergency (ER) | payer MEDICARE ==
[2017-12-20 16:08] LABS: #Basophils 0.1 thou/uL (0.0-0.2); #Eosinphils 0.1 thou/uL (0.0-0.7); #Monocytes 0.9 thou/uL (0.11-0.59); %Basophils 0.9 % (0.0-1.0); %Eosinophils 0.5 % (0.0-10.0); %Lymphocytes 30.7 % (21.0-51.0); %Monocytes 6.8 % (0.0-10.0); %Neutrophils 61.1 % (42.0-75.0); Hemoglobin 14.9 g/dL (12.0-16.0); Mean Corpuscular HGB CONC 32.8 g/dL (32.0-36.0); Mean Corpuscular Hemoglobin 30.3 pg (27.0-31.0); Mean Corpuscular Volume 92.4 fl (81.0-99.0); Mean Platelet Volume 7.5 fL (7.4-10.4); Platelet Count 323 thou/uL (130-400); RBC Distribution Width 11.7 % (11.5-14.5); Red Blood Cell (RBC) Count 4.91 mill/uL (4.20-5.40); White Blood Cell (WBC) Count 13.1 thou/uL (4.8-10.8)
--- NOTE | 2017-12-20 16:11 | RAD ---
PORTABLE CHEST ONE VIEW: 12/20/17 at 3:49 p.m. HISTORY: Chest pain. FINDINGS: Comparison made with exam of 02/15/17. The heart size is normal. The aorta is tortuous. Evidence of old granulomatous disease is again seen. No evidence of focal areas of consolidation, pneumothoraces, or pleural effusion is seen. IMPRESSION: No radiographic evidence of acute cardiopulmonary process. POS: [facility]
[2017-12-20 16:30] LABS: ALT (SGPT) 8 U/L (8-55); AST (SGOT) 16 U/L (5-34); Albumin 4.2 g/dL (3.4-4.8); Alkaline Phosphatase 106 U/L (40-150); Anion Gap 15 mmol/L (10-20); BUN (Urea Nitrogen) 26 mg/dL (9.8-20.1); Bilirubin, Total 0.5 mg/dL (0.2-1.2); CK (CPK) 70 U/L (29-168); Calc. Creatinine Clearance 0 mL/min (70-130); Calcium 10.3 mg/dL (7.8-10.44); Carbon Dioxide 27 mmol/L (23-31); Chloride 100 mmol/L (98-107); Estimated GFR-MDRD 27; Globulin 3.8 g/dL (2.4-3.5); Glucose 125 mg/dL (80-115); Potassium 4.9 mmol/L (3.5-5.1); Sodium 137 mmol/L (136-145)
[2017-12-20 16:33] LABS: CKMB 1.2 ng/mL (0-6.6); Troponin I 0.013 ng/mL (< 0.028)
--- NOTE | 2017-12-23 14:23 | EKG ---
Test Reason : Blood Pressure : / mmHG Vent. Rate : 094 BPM Atrial Rate : 094 BPM P-R Int : 196 ms QRS Dur : 052 ms QT Int : 308 ms P-R-T Axes : 067 040 082 degrees QTc Int : 385 ms Normal sinus rhythm Septal infarct , age undetermined Abnormal ECG Confirmed by ROLANDO WHITTAKER M.D. ([id number]), advertising editor REGINA ROOT ([id number] on 12/23/2017 2:22:01 PM Referred By: Confirmed By:ROLANDO WHITTAKER M.D.
== END 2017-12-20 17:12 | disposition home or self-care (01) ==
LOC: ERS 15:24
DX: K02.9 Dental caries, unspecified (principal); H60.92 Unspecified otitis externa, left ear; N17.9 Acute kidney failure, unspecified; E11.9 Type 2 diabetes mellitus without complications; E78.5 Hyperlipidemia, unspecified; I10 Essential (primary) hypertension; M81.0 Age-related osteoporosis without current pathological fracture; F17.210 Nicotine dependence, cigarettes, uncomplicated; F41.9 Anxiety disorder, unspecified; Z79.899 Other long term (current) drug therapy
CPT/HCPCS: 36415; 71045; 80053; 82550; 82553; 84484; 85025; 93005; 94760; 99406

== ENCOUNTER 2018-02-02 18:28 | Inpatient (IN) | payer MEDICARE ==
[~2018-02-02 18:28] MED LIST: Iopamidol 370 76% 100 ML VIAL ONE
[2018-02-02 19:45] LABS: Band 11 % (5-11); Hemoglobin 14.6 g/dL (12.0-16.0); Lymphocytes 6 % (21-51); MDiff Complete? YES; Mean Corpuscular HGB CONC 34.1 g/dL (32.0-36.0); Mean Corpuscular Hemoglobin 31.1 pg (27.0-31.0); Mean Corpuscular Volume 91.3 fl (81.0-99.0); Mean Platelet Volume 8.8 fL (7.4-10.4); Monocytes 3 % (0-10); Neutrophil 80 % (42-75); PLT Morphology Comment Appears Adequate; Platelet Count 259 thou/uL (130-400); RBC Distribution Width 12.7 % (11.5-14.5); RBC Morphology Normal; Red Blood Cell (RBC) Count 4.71 mill/uL (4.20-5.40); White Blood Cell (WBC) Count 27.7 thou/uL (4.8-10.8)
[2018-02-02 20:11] LABS: ALT (SGPT) 10 U/L (8-55); AST (SGOT) 21 U/L (5-34); Albumin 3.7 g/dL (3.4-4.8); Alkaline Phosphatase 88 U/L (40-150); Anion Gap 20 mmol/L (10-20); BUN (Urea Nitrogen) 29 mg/dL (9.8-20.1); Bilirubin, Total 0.8 mg/dL (0.2-1.2); Calc. Creatinine Clearance 0 mL/min (70-130); Calcium 9.1 mg/dL (7.8-10.44); Carbon Dioxide 19 mmol/L (23-31); Chloride 94 mmol/L (98-107); Estimated GFR-MDRD 37; Globulin 3.2 g/dL (2.4-3.5); Glucose 234 mg/dL (80-115); Potassium 5.2 mmol/L (3.5-5.1); Protein, Total 6.9 g/dL (6.0-8.3); Sodium 128 mmol/L (136-145)
[2018-02-02] MEDS ORDERED: Ketorolac Tromethamine 30 MG/ML VIAL ONE (20:44)
[2018-02-02] MEDS ORDERED: Dexamethasone 10 MG/ML VIAL ONE (20:44)
--- NOTE | 2018-02-02 21:34 | CT ---
CT OF THE NECK WITH CONTRAST: 02/02/18 COMPARISON: None. HISTORY: Left sided jaw pain and swelling, difficulty breathing and swallowing. TECHNIQUE: Serial axial CT imaging at 2.5 mm intervals from the skull base through the lung apices with IV contr ast. Coronal and sagittal reformatted imaging obtained. FINDINGS: The imaged brain parenchyma appears grossly unremarkable. The imaged paranasal sinuses and mastoid ai r cells appear grossly unremarkable. The retroantral fat and parapharyngeal fat appears clear bilater ally. The parotid glands and submandibular glands appear unremarkable as well. Motion limits detailed assessment in the region of the tonsillar pillars secondary to swallowing. Evaluation of the tongue is somewhat limited secondary to motion as well. The thyroid gland, epiglottis and pre-epiglottic fat, hyoid bone, cricoid cartilage, thyroid cartilag e, and thyroid gland appear grossly unremarkable. Imaged lung apices demonstrate numerous tiny pulmonary nodules. There are numerous nodules in the sup erior segment of the left lower lobe measuring up to 2-3 mm. There are also multiple pulmonary nodule s in the imaged left upper lobe measuring up to approximately 4 mm. Multiple pulmonary nodules are no vinny in imaged right upper lobe, measuring up to 4 mm. There is atherosclerotic calcification of the aortic arch and involving the proximal aspect of the gr eat vessels. No discrete periapical abscess is noted. There is prominent subcutaneous fat stranding and skin thickening in the perimandibular/inframandibul ar region on the left. There is subcutaneous fat stranding and skin thickening bilaterally inferior t o the mandibular symphysis and thickening of the adjacent platysma. There are enlarged level I nodes on the left measuring up 9 mm in short axis dimension. There is an oval fluid collection which measures 2.8 x 1.0 cm, which appears to extend along the cour se of and dissect into the anterior belly of the digastric muscle on the left suggesting abscess. No retropharyngeal abscess noted. No peritonsillar abscess noted. Review of the osseous structures demon strates degenerative change of the atlantoaxial interspace in the C5-6 intervertebral disc space. IMPRESSION: Soft tissue swelling and fat stranding in the perimandibular and inframandibular region bilaterally, left greater than right. There is an associated oblong fluid collection which appears to extend along the course of and likely extends into the anterior belly of the digastric muscle on the left suggest ing abscess. This could potentially be odontogenic in nature but no discrete periapical lucency/peria pical abscess noted. Recommend ENT consultation. POS: [facility]
[2018-02-02] MEDS ORDERED: Clindamycin/D5W 900 mg/50 ml Premix Bag ONE (21:38)
[2018-02-02] MEDS ORDERED: Dextrose 50% Abboject 50 ML SYRINGE SLOW IVP PRN (22:29)
[2018-02-02] MEDS ORDERED: HumaLOG 300 UNITS/3 ML VIAL SC PRN (22:29)
[2018-02-02] MEDS ORDERED: Dextrose 5% in Water 1,000 ML IV PRN (22:29)
[2018-02-02 23:29] LABS: Anion Gap 16 mmol/L (10-20); BUN (Urea Nitrogen) 32 mg/dL (9.8-20.1); Calc. Creatinine Clearance 0 mL/min (70-130); Calcium 8.6 mg/dL (7.8-10.44); Carbon Dioxide 21 mmol/L (23-31); Chloride 97 mmol/L (98-107); Estimated GFR-MDRD 36; Glucose 181 mg/dL (80-115); Potassium 4.7 mmol/L (3.5-5.1); Sodium 129 mmol/L (136-145)
[2018-02-02 23:56] VITALS: BMI 31.7
[2018-02-03] MEDS: Sodium Chloride 0.9% 1,000 ML IV SCH ×3 (00:38→20:47)
[2018-02-03] MEDS: Dexamethasone 4 mg/ml Vial SLOW IVP SCH ×4 (00:38→18:30)
[2018-02-03] MEDS: Ampicillin/Sulbactam 3 GM in Sodium Chloride 0.9% 100 ML IVPB SCH ×5 (00:38→23:46)
[2018-02-03] MEDS ORDERED: Sodium Chloride 0.9% 1,000 ML IV SCH (01:00)
--- NOTE | 2018-02-03 01:19 | HP ---
CHIEF COMPLAINT: Jaw pain. PRIMARY CARE PHYSICIAN: [facility]. HISTORY OF PRESENT ILLNESS: The patient is a 67-year-old female with past medical history of diabete s who presents to the hospital with complaints of jaw pain. The patient stated about 3 days ago she noticed some swelling around her mandible area which got worse today. The patient states that she pickard s not been able to eat or drink for the past 3 days. Denies any fevers; however, did have some chill s. The patient states that today she had some difficulty breathing which concerned her and that is w hy she came into the ER. The patient denies any recent dental procedures or any tooth decay or tooth toothaches. The patient's family member did get her a toothache medication over the counter; melany haddad, this did not help the patient. PAST MEDICAL HISTORY: 1. Diabetes type 2. 2. Hypertension. 3. Hyperlipidemia. PAST SURGICAL HISTORY: Appendectomy and hysterectomy. SOCIAL HISTORY: She has a history of smoking 1 or 2 cigarettes a day. Denies any alcohol or drug us e. FAMILY HISTORY: Positive for heart problems. REVIEW OF SYSTEMS: The following complete review of systems was negative, unless otherwise mentioned in the HPI or below: Constitutional: Weight loss or gain, ability to conduct usual activities. Sk in: Rash, itching. Eyes: Double vision, pain. ENT/Mouth: Nose bleeding, neck stiffness, pain, ten derness. Cardiovascular: Palpitations, dyspnea on exertion, orthopnea. Respiratory: Shortness of breath, wheezing, cough, hemoptysis, fever or night sweats. Gastrointestinal: Poor appetite, abdomi nal pain, heartburn, nausea, vomiting, constipation, or diarrhea. Genitourinary: Urgency, frequency , dysuria, nocturia. Musculoskeletal: Pain, swelling. Neurologic/Psychiatric: Anxiety, depression . Allergy/Immunologic: Skin rash, bleeding tendency. All negative except for the ones mentioned in the HPI. ALLERGIES: She has no known drug allergies. PHYSICAL EXAMINATION: VITAL SIGNS: Temperature 97.4, pulse 72, respirations 18, satting 95% on room air, and blood pressur e 126/72. GENERAL: She is awake, alert, oriented x3, does not appear in any distress. CARDIOVASCULAR: S1, S2 present. No murmurs, rubs or gallops. LUNGS: Clear to auscultation. She does have mild rhonchi scattered all over. No wheezing noted. ABDOMEN: Soft, nontender. Bowel sounds are present x2. No hepatomegaly, splenomegaly noted. EXTREMITIES: No edema. HEENT: I did not appreciate any lymphadenopathy; however, she does have significant swelling on her left mandible area which is painful to touch. Upon examining her teeth, I did not appreciate any dec aying teeth. Mild erythema around the buccal cavity. LABORATORY DATA: WBCs of 27.7 with bands of 11, hemoglobin of 14.6. Chemistry: Sodium of 129, pota ssium of 4.7, chloride of 97, BUN of 32, creatinine of 1.46, sugar of 181. She did have a CT that CT which indicated head and neck soft tissue swelling and fat stranding around the premandibular and in tramandibular region. There is an abscess 2.8 x 1.0 cm. ASSESSMENT AND PLAN: The patient is a very pleasant 67-year-old female who presents to the hospital with jaw pain. 1. Most likely mandibular abscess. We will start the patient on Unasyn 3 grams IV q.6 hours, I will start the patient on some gentle hydration. We will also start the patient on some steroids. The p atient currently has no complaints of difficulty breathing. However, she does have some pain on swal lowing. Does not appear in any respiratory distress. We will put the patient on a PPI. OMF has amanda hill been consulted. We will keep patient n.p.o. Start the patient on IV hydration. 2. Sepsis, most likely secondary to problem #1. We will give the patient a bolus of normal saline x 1. Start her on IV hydration and continue to monitor. 3. Diabetes. We will put the patient on sliding scale and Accu-Cheks. 4. Deep venous thrombosis prophylaxis. We will put the patient on sequential compression devices. 5. The patient has chronic kidney disease, normal at baseline creatinine.
[2018-02-03 04:36] LABS: #Lymphocytes 0.9 thou/uL (1.20-3.40); #Monocytes 0.3 thou/uL (0.11-0.59); #Neutrophils 18.7 thou/uL (1.40-6.50); %Lymphocytes 4.7 % (21.0-51.0); %Monocytes 1.4 % (0.0-10.0); %Neutrophils 93.8 % (42.0-75.0); Mean Corpuscular HGB CONC 33.1 g/dL (32.0-36.0); Mean Corpuscular Hemoglobin 31.1 pg (27.0-31.0); Mean Platelet Volume 8.1 fL (7.4-10.4); Platelet Count 223 thou/uL (130-400); RBC Distribution Width 12.5 % (11.5-14.5); Red Blood Cell (RBC) Count 4.16 mill/uL (4.20-5.40)
[2018-02-03 05:04] LABS: Anion Gap 12 mmol/L (10-20); BUN (Urea Nitrogen) 34 mg/dL (9.8-20.1); Calc. Creatinine Clearance 47 mL/min (70-130); Calcium 8.5 mg/dL (7.8-10.44); Carbon Dioxide 23 mmol/L (23-31); Chloride 102 mmol/L (98-107); Estimated GFR-MDRD 37; Glucose 208 mg/dL (80-115); Potassium 4.7 mmol/L (3.5-5.1); Sodium 132 mmol/L (136-145)
[2018-02-03] MEDS ORDERED: hydrALAZINE 20 MG/ML VIAL SLOW IVP PRN (07:43)
[2018-02-03] MEDS ORDERED: Ondansetron ODT 4 MG TAB PO PRN (07:43)
[2018-02-03] MEDS ORDERED: Eucerin (Mineral Oil/Petrolatum,White) 30 gm Jar TOP PRN (07:43)
[2018-02-03] MEDS ORDERED: HYDROcodone/Acetaminophen 5/325 mg Tablet PO PRN (07:43)
[2018-02-03] MEDS ORDERED: Mag-Al 1200 mg/1200 mg/30 ML UDCUP PO PRN (07:43)
[2018-02-03] MEDS ORDERED: Milk Of Magnesia 30 ML UDCUP PO PRN (07:43)
[2018-02-03] MEDS ORDERED: Ondansetron HCl/PF 4 MG/2 ML Vial IVP PRN ×2 (07:43→11:40)
[2018-02-03] MEDS ORDERED: Senokot 8.6 MG TAB PO PRN (07:43)
[2018-02-03] MEDS ORDERED: Temazepam 15 MG CAP PO PRN (07:43)
[2018-02-03] MEDS ORDERED: Acetaminophen 325 MG TAB PO PRN (07:43)
[2018-02-03] MEDS ORDERED: Loratadine 10 MG TAB PO PRN (07:43)
[2018-02-03] MEDS ORDERED: Sodium Chloride 0.65% Nasal 44 ML BOT EA NARE PRN (07:43)
[2018-02-03] MEDS ORDERED: Artificial Tear Sol 15 ML BOT EA EYE PRN (07:43)
[2018-02-03] MEDS ORDERED: Diabetic Tussin 200 MG/10 ML UDCUP PO PRN (07:43)
[2018-02-03] MEDS ORDERED: Chloraseptic Spray 180 ml Bottle PO PRN (07:43)
[2018-02-03] MEDS ORDERED: Loperamide HCl 2 MG CAP PO PRN (07:43)
[2018-02-03] MEDS ORDERED: HumaLOG 300 UNITS/3 ML VIAL SC PRN ×2 (07:43)
[2018-02-03] MEDS ORDERED: Morphine 4 MG/ML VIAL SLOW IVP PRN (07:44)
[2018-02-03] MEDS ORDERED: PROVENTIL INHALER 6.7 G (200 INHALATIONS) INH PRN (07:44)
[2018-02-03] MEDS: Heparin 5,000 UNITS/ML VIAL SC SCH ×2 (08:53→20:47)
[2018-02-03] MEDS ORDERED: Heparin 5,000 UNITS/ML VIAL SC SCH (09:00)
[2018-02-03] MEDS: Lisinopril 10 MG TAB PO SCH (09:44)
[2018-02-03] MEDS: Famotidine 40 MG/4 ML VIAL SLOW IVP SCH (10:16)
[2018-02-03] MEDS: glyBURIDE 5 MG TAB PO SCH ×2 (10:19→20:47)
[2018-02-03] MEDS ORDERED: Chlorhexidine Gluconate 15 ML UDCUP SSP ONE (10:40)
[2018-02-03] MEDS ORDERED: Lidocaine 2% w/Epinephrine 1:200K 20 ML VIAL ONE (10:40)
[2018-02-03] MEDS ORDERED: Ondansetron HCl/PF 4 MG/2 ML Vial ONE ×2 (10:42→16:36)
[2018-02-03] MEDS ORDERED: Famotidine/PF 20 mg/2ml Vial ONE (10:42)
[2018-02-03] MEDS ORDERED: Fentanyl 100 MCG/2 ML VIAL ONE (10:42)
[2018-02-03] MEDS ORDERED: Midazolam HCl 2 mg/2 ml Vial ONE (10:49)
--- NOTE | 2018-02-03 11:33 | PDOC.PN ---
- Subjective Encounter Start Date: 02/03/18 Encounter Start Time: 08:50 -: old records requested/rev Patient seen and examined. No new complaints. No overnight events - Objective Resuscitation Status: Resuscitation Status FULL:Full Resuscitation MAR Reviewed: Yes Vital Signs & Weight: Vital Signs (12 hours) Temp Pulse Resp BP BP Pulse Ox 02/03/18 07:36 98.1 F 88 16 93/59 L 95 02/03/18 06:29 71 16 95 02/03/18 05:17 97.7 F 73 16 129/78 94 L 02/03/18 03:09 76 16 96 Weight Weight 168 lb Result Diagrams: 02/03/18 04:19 02/03/18 04:19 Additional Labs: Accuchecks 02/03/18 02:31 POC Glucose 196 H Radiology Reviewed by me: Yes (CT soft tissue neck) Phys Exam - Physical Examination Constitutional: NAD HEENT: PERRLA, moist MMs, sclera anicteric mandibular swelling Neck: no JVD, supple Respiratory: no wheezing, no rales, no rhonchi Cardiovascular: RRR, no significant murmur, no rub Gastrointestinal: soft, non-tender, no distention, positive bowel sounds Musculoskeletal: no edema, pulses present Neurological: non-focal, normal sensation, moves all 4 limbs Psychiatric: normal affect, A&O x 3 Skin: no rash, normal turgor Dx/Plan (1) Acute kidney failure Status: Acute (2) Hyperkalemia Code(s): E87.5 - HYPERKALEMIA Status: Acute (3) Hyponatremia Code(s): E87.1 - HYPO-OSMOLALITY AND HYPONATREMIA Status: Acute (4) Mandibular abscess Code(s): M27.2 - INFLAMMATORY CONDITIONS OF JAWS Status: Acute (5) Sepsis with acute organ dysfunction Code(s): A41.9 - SEPSIS, UNSPECIFIED ORGANISM; R65.20 - SEVERE SEPSIS WITHOUT SEPTIC SHOCK Status: Acute (6) COPD (chronic obstructive pulmonary disease) Status: Chronic (7) DM2 (diabetes mellitus, type 2) Status: Chronic Qualifiers: (8) HLD (hyperlipidemia) Code(s): E78.5 - HYPERLIPIDEMIA, UNSPECIFIED Status: Chronic Qualifiers: (9) HTN (hypertension) Code(s): I10 - ESSENTIAL (PRIMARY) HYPERTENSION Status: Chronic Qualifiers: (10) Obesity (BMI 30.0-34.9) Code(s): E66.9 - OBESITY, UNSPECIFIED Status: Chronic (11) Tobacco dependence Code(s): F17.200 - NICOTINE DEPENDENCE, UNSPECIFIED, UNCOMPLICATED Status: Chronic - Plan cont current plan of care, plan discussed w/ family, continue antibiotics * continue IVF * continue unasyn * continue decadron for swelling * today plan for surgery by oral surgeon * repeat labs tomorrow * pain control with morphine * medication reviewed as below * symptomatic treatment * discussed with . * change duoneb PRN Review of Systems - Review of Systems Constitutional: negative: fever, chills, sweats, weakness, malaise, other Eyes: negative: Pain, Vision Change, Conjunctivae Inflammation, Eyelid Inflammation, Redness, Other ENT: Mouth Pain. negative: Ear Pain, Ear Discharge, Nose Pain, Nose Discharge, Nose Congestion, Mouth Swelling, Throat Pain, Throat Swelling, Other Respiratory: negative: Cough, Dry, Shortness of Breath, Hemoptysis, SOB with Excertion, Pleuritic Pain, Sputum, Wheezing Cardiovascular: negative: chest pain, palpitations, orthopnea, paroxysmal nocturnal dyspnea, edema, light headedness, other Gastrointestinal: negative: Nausea, Vomiting, Abdominal Pain, Diarrhea, Constipation, Melena, Hematochezia, Other Genitourinary: negative: Dysuria, Frequency, Incontinence, Hematuria, Retention , Other Musculoskeletal: negative: Neck Pain, Shoulder Pain, Arm Pain, Back Pain, Hand Pain, Leg Pain, Foot Pain, Other Skin: negative: Rash, Lesions, Dalton, Bruising, Other - Medications/Allergies Allergies/Adverse Reactions: Allergies Allergy/AdvReac Type Severity Reaction Status Date / Time No Known Allergies Allergy Unverified 07/28/17 04:21 Medications: Current Medications Acetaminophen (Tylenol) 650 mg PO Q4H PRN PRN Reason: Headache/Fever or Mild Pain Hydrocodone Bitart/Acetaminophen ([place] 5/325) 1 tab PO Q4H PRN PRN Reason: Moderate Pain (4-6) Al Hydroxide/Mg Hydroxide (Maalox) 15 ml PO Q4H PRN PRN Reason: Heartburn or Indigestion Albuterol Sulfate (Proventil Hfa) 2 puff INH Q4H PRN PRN Reason: SOB &/or Wheezing Albuterol/Ipratropium (Duoneb) 3 ml NEB [id number] [facility] Last Admin: 02/03/18 10:13 Dose: Not Given Artificial Tears (Tears Renewed 15ml Bottle) 0 drop EA EYE PRN PRN PRN Reason: Dry Eyes Atorvastatin Calcium (Lipitor) 10 mg PO HS [facility] Dexamethasone (Decadron) 4 mg SLOW IVP Q6HR [facility] Stop: 02/04/18 06:01 Dextrose/Water (Dextrose 50%) 25 gm SLOW IVP PRN PRN PRN Reason: Hypoglycemia Famotidine (Pepcid) 20 mg SLOW IVP Q24HR [facility] Last Admin: 02/03/18 10:16 Dose: 20 mg Glucagon (Glucagon) 1 mg IM PRN PRN PRN Reason: Hypoglycemia Glyburide (Diabeta) 5 mg PO BID [facility] Last Admin: 02/03/18 10:19 Dose: Not Given Guaifenesin (Robitussin Sf) 200 mg PO Q4H PRN PRN Reason: Cough Heparin Sodium (Porcine) (Heparin) 5,000 units SC BID [facility] Last Admin: 02/03/18 08:53 Dose: Not Given Hydralazine HCl (Apresoline) 10 mg SLOW IVP Q4H PRN PRN Reason: Systolic BP > 180 Ampicillin Sodium/Sulbactam (Sodium 3 gm/ Sodium Chloride) 100 mls @ 200 mls/ hr IVPB Q6HR [facility] Last Admin: 02/03/18 05:33 Dose: 100 mls Dextrose/Water (D5w) 1,000 mls @ 0 mls/hr IV .Q0M PRN; As Directed PRN Reason: Hypoglycemia Sodium Chloride (Normal Saline 0.9%) 1,000 mls @ 100 mls/hr IV .Q10H [facility] Last Admin: 02/03/18 08:32 Dose: 1,000 mls Insulin Human Lispro (Humalog) 0 units SC .AGGRESSIVE SLIDING PRN PRN Reason: Aggressive Correctional Scale Insulin Human Lispro (Humalog) 0 units SC .BEDTIME SLIDING SC PRN PRN Reason: Bedtime Correctional Scale Lisinopril (Zestril) 10 mg PO DAILY [facility] Last Admin: 02/03/18 09:44 Dose: Not Given Loperamide HCl (Imodium) 2 mg PO PRN PRN PRN Reason: Diarrhea/Loose Stools Loratadine (Claritin) 10 mg PO DAILYPRN PRN PRN Reason: Sinus Symptoms Magnesium Hydroxide (Milk Of Magnesium) 30 ml PO DAILYPRN PRN PRN Reason: Constipation Mineral Oil/White Petrolatum (Eucerin Cream) 0 gm TOP BIDPRN PRN PRN Reason: Dry Skin Morphine Sulfate (Morphine) 2 mg SLOW IVP Q4H PRN PRN Reason: Pain Ondansetron HCl (Zofran Odt) 4 mg PO Q6H PRN PRN Reason: Nausea/Vomiting Ondansetron HCl (Zofran) 4 mg IVP Q6H PRN PRN Reason: Nausea/Vomiting Phenol (Chloraseptic [place] 180 Ml Bot) 0 ml PO PRN PRN PRN Reason: Sore Throat Senna (Senokot) 2 tab PO HSPRN PRN PRN Reason: Constipation Sodium Chloride ([place] Nasal [place] 0.65%) 0 ml EA NARE QIDPRN PRN PRN Reason: Nasal Congestion Temazepam (Restoril) 15 mg PO HSPRN PRN PRN Reason: Insomnia
[2018-02-03] MEDS ORDERED: Promethazine HCl 25 MG/ML VIAL IM PRN (11:40)
[2018-02-03] MEDS ORDERED: Meperidine HCl/PF 25 MG/ML VIAL SLOW IVP PRN (11:40)
[2018-02-03] MEDS ORDERED: Promethazine HCl 25 MG/ML VIAL SLOW IVP PRN (11:40)
[2018-02-03] MEDS ORDERED: SUGAMMADEX SODIUM 500 MG/5 ML VIAL ONE (12:07)
--- NOTE | 2018-02-03 15:48 | CON ---
DATE OF CONSULTATION: 02/03/2018 HISTORY OF PRESENT ILLNESS: This is a 67-year-old female, who reports approximately 4-5 days history of left-sided jaw pain with acute increase in swelling over the last 24 hours leading to some diffic ulty swallowing, which led the patient to report to the ER. A CT scan of the neck revealed a fluid c ollection within the left submandibular space and the patient was admitted for medical management and surgical intervention. PAST MEDICAL HISTORY: 1. Diabetes type 2. 2. Hypertension. 3. Hyperlipidemia. ALLERGIES: No known drug allergies. PAST SURGICAL HISTORY: 1. Appendectomy. 2. Hysterectomy. SOCIAL HISTORY: Positive for smoking. Denies alcohol or recreational drug use. REVIEW OF SYSTEMS: The patient reports a left-sided facial and neck pain and tenderness to palpation , discomfort on swallowing, but able to handle secretions and liquids. PHYSICAL EXAMINATION: VITAL SIGNS: Stable, afebrile. The patient's oxygen saturation is 96% on room air. GENERAL: Awake, alert, oriented x3, sitting in bed, in no acute distress. HEENT: Normocephalic, atraumatic. There is a left buccal and submandibular edema, mild erythema wit h tenderness to palpation. The inferior border along the left mandibular body is not palpable. Eliel ibular opening is approximately 30 mm. Tongue: Full range of motion. Floor of mouth is soft. Tend erness to palpation along the left floor of mouth. No significant vestibular edema or active purulen ce. There is tenderness to palpation along tooth #18 with a crack running medial to distal. LABORATORY DATA: White blood cell count 27.7 on admission, today 20; hemoglobin 14.6; glucose 200. IMAGING: CT of the neck reveals a 2.8 x 1.0 cm fluid collection in the left submandibular space as w ell as vertical fracture of tooth #18 with a periapical radiolucency associated with the distal root. ASSESSMENT AND PLAN: A 67-year-old female with a left submandibular abscess associated with cracked tooth #18. The patient was started on Unasyn 3 grams IV q.6 hours, which will be continued after gayle gical intervention. Plan is to take her to the operating room for extraction of indicated teeth and incision and drainage of the abscess. The patient is currently n.p.o. and remained that way until [facility]. The patient will likely be admitted through the weekend with a drain removal on Monday aftern oon or Monday morning with improvement after surgery.
[2018-02-03] MEDS ORDERED: Lidocaine 1% PF 5 ML VIAL ONE (16:36)
[2018-02-03] MEDS ORDERED: PHENYLEPHRINE-NS 100 MCG/ML 10 ML SYRINGE ONE (16:36)
[2018-02-03] MEDS ORDERED: Ketorolac Tromethamine 30 MG/ML VIAL ONE (16:36)
[2018-02-03] MEDS ORDERED: Glycopyrrolate 0.2 MG/ML 5 ML SYRINGE ONE (16:36)
[2018-02-03] MEDS ORDERED: ePHEDrine/0.9% NaCl/PF SYRINGE 50 mg/10 ml ONE (16:36)
[2018-02-03] MEDS ORDERED: PROPOFOL 200 MG/20 ML VIAL ONE (16:36)
--- NOTE | 2018-02-03 18:48 | OP ---
DATE OF PROCEDURE: 02/03/2018 PREOPERATIVE DIAGNOSES: 1. Cracked tooth #18. 2. Left submandibular odontogenic abscess. POSTOPERATIVE DIAGNOSES: 1. Cracked tooth #18. 2. Left submandibular odontogenic abscess. PROCEDURES PERFORMED: 1. Surgical extraction of tooth #18. 2. Extraoral incision and drainage of left submandibular abscess. ANESTHESIA: General endotracheal anesthesia. SOCIAL RESEARCH ASSISTANT: Dr. Shipman. INDICATIONS FOR PROCEDURE: This is a 67-year-old female with a 24-hour history of acute jaw pain and left neck swelling. CT in the ER revealed a fluid collection in the left submandibular space requir ing operative intervention. The patient was met in the preoperative holding area. The risks, benefi ts, and alternatives of the procedure were discussed in detail. The patient's questions were sought and answered. The patient agreed with the proposed surgical plan and informed consent was obtained. PROCEDURE PERFORMED: The patient was transferred to the operating room by Anesthesia nursing and to the OR table where a safety belt was secured. ASA monitors were attached and the patient was noted t o have stable vital signs. IV induction by Anesthesia with endotracheal intubation x1 without compli cation. The patient was prepped and draped in a sterile fashion. A timeout was performed. I began by thoroughly suctioning the oropharynx and moistened Ray-Reece throat pack was placed. Peride x mouth rinse and toothbrush was used throughout the oral cavity. A 2% Xylocaine with 1:200,000 epin ephrine was administered as a left inferior alveolar nerve, left lingual nerve and left buccal nerve blocks as well as a subcutaneous injection along the left neck for the incision line. A 23-forcep wa s used for removal of tooth #18 with fracture of the mesial root. 703 bur was used for an ostectomy of the bone within the furcation and elevator and hemostat was used for removal of the remainder of t ooth #18. A curet was used for removal of granulation tissue and apex of the socket with a mild puru lence from the extraction site, which was cultured. Copious irrigation was performed then moved extr aorally where a 1.5 cm horizontal incision was made in a natural skin crease in the left neck below t inferior border of the mandible. Blunt dissection was performed down to the platysma. Dissection continued bluntly through the platysma and then medial and then superior to the inferior border of t he mandible. A mild amount of purulence was obtained from the neck and cultured. The wound was expl ored anterior, posterior, medial and inferior digitally and copious irrigation of the wound was perfo rmed with normal saline. A half inch Jamey drain was placed and secured with 3-0 silk suture. A 3 -0 Vicryl was used to approximate the anterior wound margins. The oropharynx was thoroughly suctione d and moistened Ray-Reece throat pack was removed. Gauze pack was placed for hemostasis and the patien t was turned over to Anesthesia where she was extubated in the room and returned to the PACU in stabl e condition. FLUIDS: See anesthesia records. ESTIMATED BLOOD LOSS: 20 mL. DRAINS: Half inch Jamey drain in the left submandibular region. SPECIMENS: Neck and intraoral cultures. COUNTS: Needle and sponge count verified as correct. COMPLICATIONS: None.
[2018-02-03] MEDS: Atorvastatin Calcium 10 MG TAB PO SCH (20:47)
[2018-02-04] MEDS: Dexamethasone 4 mg/ml Vial SLOW IVP SCH ×2 (01:16→05:45)
[2018-02-04] MEDS: Ampicillin/Sulbactam 3 GM in Sodium Chloride 0.9% 100 ML IVPB SCH ×3 (05:46→18:17)
--- NOTE | 2018-02-04 05:51 | PDOC.PN ---
- Subjective Encounter Start Date: 02/04/18 Encounter Start Time: 08:45 Patient seen and examined. No new complaints. No overnight events has still swelling and pain - Objective Resuscitation Status: Resuscitation Status FULL:Full Resuscitation MAR Reviewed: Yes Vital Signs & Weight: Vital Signs (12 hours) Temp Pulse Resp BP Pulse Ox 02/04/18 04:32 97.7 F 71 16 81/50 L 92 L 02/03/18 23:36 98.2 F 69 18 92/60 94 L 02/03/18 20:15 97.7 F 71 16 97 Weight Weight 168 lb Result Diagrams: 02/04/18 05:13 02/04/18 05:13 Additional Labs: Accuchecks 02/03/18 02/03/18 02/03/18 20:17 18:03 05:40 POC Glucose 266 H 257 H 202 H Phys Exam - Physical Examination Constitutional: NAD HEENT: PERRLA, moist MMs, sclera anicteric submandibular abscess with dressing Neck: no JVD, supple Respiratory: no wheezing, no rales, no rhonchi Cardiovascular: RRR, no significant murmur, no rub Gastrointestinal: soft, non-tender, no distention, positive bowel sounds Musculoskeletal: no edema, pulses present Neurological: non-focal, normal sensation, moves all 4 limbs Psychiatric: normal affect, A&O x 3 Skin: no rash, normal turgor Dx/Plan (1) Sepsis with acute organ dysfunction Code(s): A41.9 - SEPSIS, UNSPECIFIED ORGANISM; R65.20 - SEVERE SEPSIS WITHOUT SEPTIC SHOCK Status: Acute (2) Submandibular abscess Code(s): K12.2 - CELLULITIS AND ABSCESS OF MOUTH Status: Acute (3) Acute kidney failure Status: Resolved (4) Hyperkalemia Code(s): E87.5 - HYPERKALEMIA Status: Resolved (5) Hyponatremia Code(s): E87.1 - HYPO-OSMOLALITY AND HYPONATREMIA Status: Resolved (6) COPD (chronic obstructive pulmonary disease) Status: Chronic (7) DM2 (diabetes mellitus, type 2) Status: Chronic Qualifiers: (8) HLD (hyperlipidemia) Code(s): E78.5 - HYPERLIPIDEMIA, UNSPECIFIED Status: Chronic Qualifiers: (9) HTN (hypertension) Code(s): I10 - ESSENTIAL (PRIMARY) HYPERTENSION Status: Chronic Qualifiers: (10) Obesity (BMI 30.0-34.9) Code(s): E66.9 - OBESITY, UNSPECIFIED Status: Chronic (11) Tobacco dependence Code(s): F17.200 - NICOTINE DEPENDENCE, UNSPECIFIED, UNCOMPLICATED Status: Chronic - Plan cont current plan of care, continue antibiotics * s/p I & D * wound care * pain control * wbc high is due to steroid * repeat labs tomorrow * continue current iv antibiotics * medication reviewed as below * symptomatic treatment. Review of Systems - Review of Systems Constitutional: negative: fever, chills, sweats, weakness, malaise, other ENT: Mouth Swelling. negative: Ear Pain, Ear Discharge, Nose Pain, Nose Discharge, Nose Congestion, Mouth Pain, Throat Pain, Throat Swelling, Other Respiratory: negative: Cough, Dry, Shortness of Breath, Hemoptysis, SOB with Excertion, Pleuritic Pain, Sputum, Wheezing Cardiovascular: negative: chest pain, palpitations, orthopnea, paroxysmal nocturnal dyspnea, edema, light headedness, other Gastrointestinal: negative: Nausea, Vomiting, Abdominal Pain, Diarrhea, Constipation, Melena, Hematochezia, Other Genitourinary: negative: Dysuria, Frequency, Incontinence, Hematuria, Retention , Other Musculoskeletal: negative: Neck Pain, Shoulder Pain, Arm Pain, Back Pain, Hand Pain, Leg Pain, Foot Pain, Other Skin: negative: Rash, Lesions, Dalton, Bruising, Other Neurological: negative: Weakness, Numbness, Incoordination, Change in Speech, Confusion, Seizures, Other - Medications/Allergies Allergies/Adverse Reactions: Allergies Allergy/AdvReac Type Severity Reaction Status Date / Time No Known Allergies Allergy Unverified 07/28/17 04:21 Medications: Current Medications Acetaminophen (Tylenol) 650 mg PO Q4H PRN PRN Reason: Headache/Fever or Mild Pain Hydrocodone Bitart/Acetaminophen ([place] 5/325) 1 tab PO Q4H PRN PRN Reason: Moderate Pain (4-6) Al Hydroxide/Mg Hydroxide (Maalox) 15 ml PO Q4H PRN PRN Reason: Heartburn or Indigestion Albuterol Sulfate (Proventil Hfa) 2 puff INH Q4H PRN PRN Reason: SOB &/or Wheezing Albuterol/Ipratropium (Duoneb) 3 ml NEB Q6H PRN PRN Reason: SOB &/or Wheezing Artificial Tears (Tears Renewed 15ml Bottle) 0 drop EA EYE PRN PRN PRN Reason: Dry Eyes Atorvastatin Calcium (Lipitor) 10 mg PO HS [facility] Last Admin: 02/03/18 20:47 Dose: 10 mg Dexamethasone (Decadron) 4 mg SLOW IVP Q6HR [facility] Stop: 02/04/18 06:01 Last Admin: 02/04/18 05:45 Dose: 4 mg Dextrose/Water (Dextrose 50%) 25 gm SLOW IVP PRN PRN PRN Reason: Hypoglycemia Famotidine (Pepcid) 20 mg SLOW IVP Q24HR [facility] Last Admin: 02/03/18 10:16 Dose: 20 mg Glucagon (Glucagon) 1 mg IM PRN PRN PRN Reason: Hypoglycemia Glyburide (Diabeta) 5 mg PO BID [facility] Last Admin: 02/03/18 20:47 Dose: 5 mg Guaifenesin (Robitussin Sf) 200 mg PO Q4H PRN PRN Reason: Cough Heparin Sodium (Porcine) (Heparin) 5,000 units SC BID [facility] Last Admin: 02/03/18 20:47 Dose: 5,000 units Hydralazine HCl (Apresoline) 10 mg SLOW IVP Q4H PRN PRN Reason: Systolic BP > 180 Ampicillin Sodium/Sulbactam (Sodium 3 gm/ Sodium Chloride) 100 mls @ 200 mls/ hr IVPB Q6HR [facility] Last Admin: 02/04/18 05:46 Dose: 100 mls Dextrose/Water (D5w) 1,000 mls @ 0 mls/hr IV .Q0M PRN; As Directed PRN Reason: Hypoglycemia Sodium Chloride (Normal Saline 0.9%) 1,000 mls @ 100 mls/hr IV .Q10H [facility] Last Admin: 02/03/18 20:47 Dose: 1,000 mls Insulin Human Lispro (Humalog) 0 units SC .AGGRESSIVE SLIDING PRN PRN Reason: Aggressive Correctional Scale Insulin Human Lispro (Humalog) 0 units SC .BEDTIME SLIDING SC PRN PRN Reason: Bedtime Correctional Scale Lisinopril (Zestril) 10 mg PO DAILY [facility] Last Admin: 02/03/18 09:44 Dose: Not Given Loperamide HCl (Imodium) 2 mg PO PRN PRN PRN Reason: Diarrhea/Loose Stools Loratadine (Claritin) 10 mg PO DAILYPRN PRN PRN Reason: Sinus Symptoms Magnesium Hydroxide (Milk Of Magnesium) 30 ml PO DAILYPRN PRN PRN Reason: Constipation Mineral Oil/White Petrolatum (Eucerin Cream) 0 gm TOP BIDPRN PRN PRN Reason: Dry Skin Morphine Sulfate (Morphine) 2 mg SLOW IVP Q4H PRN PRN Reason: Pain Ondansetron HCl (Zofran Odt) 4 mg PO Q6H PRN PRN Reason: Nausea/Vomiting Ondansetron HCl (Zofran) 4 mg IVP Q6H PRN PRN Reason: Nausea/Vomiting Phenol (Chloraseptic [place] [employer] 180 Ml Bot) 0 ml PO PRN PRN PRN Reason: Sore Throat Senna (Senokot) 2 tab PO HSPRN PRN PRN Reason: Constipation Sodium Chloride ([place] Nasal [employer] 0.65%) 0 ml EA NARE QIDPRN PRN PRN Reason: Nasal Congestion Temazepam (Restoril) 15 mg PO HSPRN PRN PRN Reason: Insomnia
[2018-02-04 05:53] LABS: Anion Gap 13 mmol/L (10-20); BUN (Urea Nitrogen) 41 mg/dL (9.8-20.1); Band 9 % (5-11); Calc. Creatinine Clearance 64 mL/min (70-130); Calcium 8.3 mg/dL (7.8-10.44); Carbon Dioxide 20 mmol/L (23-31); Chloride 107 mmol/L (98-107); Estimated GFR-MDRD 53; Glucose 198 mg/dL (80-115); Hemoglobin 11.1 g/dL (12.0-16.0); Lymphocytes 1 % (21-51); MDiff Complete? YES; Mean Corpuscular HGB CONC 33.1 g/dL (32.0-36.0); Mean Corpuscular Hemoglobin 31.2 pg (27.0-31.0); Mean Corpuscular Volume 94.3 fl (81.0-99.0); Mean Platelet Volume 8.7 fL (7.4-10.4); Monocytes 1 % (0-10); Neutrophil 89 % (42-75); Platelet Count 206 thou/uL (130-400); Potassium 4.8 mmol/L (3.5-5.1); RBC Distribution Width 12.7 % (11.5-14.5); Red Blood Cell (RBC) Count 3.56 mill/uL (4.20-5.40); Sodium 135 mmol/L (136-145); White Blood Cell (WBC) Count 24.7 thou/uL (4.8-10.8)
[2018-02-04] MEDS: Sodium Chloride 0.9% 1,000 ML IV SCH ×2 (06:32→14:06)
[2018-02-04] MEDS: Heparin 5,000 UNITS/ML VIAL SC SCH ×2 (09:06→21:12)
[2018-02-04] MEDS: glyBURIDE 5 MG TAB PO SCH ×2 (09:06→21:12)
[2018-02-04] MEDS: Lisinopril 10 MG TAB PO SCH (09:08)
[2018-02-04] MEDS ORDERED: Famotidine 20 MG TAB PO SCH (09:30)
[2018-02-04] MEDS: Famotidine 40 MG/4 ML VIAL SLOW IVP SCH (10:58)
[2018-02-04] MEDS: Atorvastatin Calcium 10 MG TAB PO SCH (21:12)
[2018-02-05] MEDS: Sodium Chloride 0.9% 1,000 ML IV SCH (00:16)
[2018-02-05] MEDS: Ampicillin/Sulbactam 3 GM in Sodium Chloride 0.9% 100 ML IVPB SCH ×2 (00:16→05:53)
[2018-02-05 05:06] LABS: #Lymphocytes 1.1 thou/uL (1.20-3.40); #Monocytes 0.5 thou/uL (0.11-0.59); #Neutrophils 15.1 thou/uL (1.40-6.50); %Basophils 0.1 % (0.0-1.0); %Eosinophils 0.1 % (0.0-10.0); %Lymphocytes 6.7 % (21.0-51.0); %Monocytes 2.9 % (0.0-10.0); %Neutrophils 90.1 % (42.0-75.0); Hemoglobin 10.8 g/dL (12.0-16.0); Mean Corpuscular HGB CONC 33.4 g/dL (32.0-36.0); Mean Corpuscular Hemoglobin 31.8 pg (27.0-31.0); Mean Corpuscular Volume 95.2 fl (81.0-99.0); Mean Platelet Volume 8.9 fL (7.4-10.4); Platelet Count 202 thou/uL (130-400); RBC Distribution Width 12.9 % (11.5-14.5); Red Blood Cell (RBC) Count 3.39 mill/uL (4.20-5.40); White Blood Cell (WBC) Count 16.8 thou/uL (4.8-10.8)
[2018-02-05] MEDS ORDERED: Famotidine 20 MG TAB PO SCH (09:00)
[2018-02-05] MEDS: Lisinopril 10 MG TAB PO SCH (09:02)
[2018-02-05] MEDS: glyBURIDE 5 MG TAB PO SCH (09:02)
[2018-02-05] MEDS: Heparin 5,000 UNITS/ML VIAL SC SCH (09:02)
--- NOTE | 2018-02-05 09:53 | PDOC.PN ---
- Subjective Encounter Start Date: 02/05/18 Encounter Start Time: 08:20 Patient seen and examined. No new complaints. No overnight events - Objective Resuscitation Status: Resuscitation Status FULL:Full Resuscitation MAR Reviewed: Yes Vital Signs & Weight: Vital Signs (12 hours) Temp Pulse Resp BP BP Pulse Ox 02/05/18 09:02 101/69 02/05/18 08:00 97.4 F L 69 18 02/05/18 07:40 97.6 F 60 16 113/67 97 02/05/18 03:40 97.4 F L 69 18 109/65 94 L 02/05/18 00:11 97.7 F 57 L 20 110/59 L 94 L Weight Weight 168 lb I&O: 02/04/18 02/05/18 02/06/18 06:59 06:59 06:59 Intake Total 1820 3350 Balance 1820 3350 Result Diagrams: 02/05/18 04:32 02/04/18 05:13 Additional Labs: Accuchecks 02/05/18 02/04/18 02/04/18 05:54 20:23 16:07 POC Glucose 123 H 236 H 217 H 02/04/18 11:36 POC Glucose 197 H Phys Exam - Physical Examination Constitutional: NAD HEENT: PERRLA, moist MMs, sclera anicteric Neck: no JVD, supple surgical site with dressing Respiratory: no wheezing, no rales, no rhonchi Cardiovascular: RRR, no significant murmur, no rub Gastrointestinal: soft, non-tender, no distention, positive bowel sounds Musculoskeletal: no edema, pulses present Neurological: non-focal, normal sensation, moves all 4 limbs Psychiatric: normal affect, A&O x 3 Skin: no rash, normal turgor Dx/Plan (1) Sepsis with acute organ dysfunction Code(s): A41.9 - SEPSIS, UNSPECIFIED ORGANISM; R65.20 - SEVERE SEPSIS WITHOUT SEPTIC SHOCK Status: Acute (2) Submandibular abscess Code(s): K12.2 - CELLULITIS AND ABSCESS OF MOUTH Status: Acute (3) Acute kidney failure Status: Resolved (4) Hyperkalemia Code(s): E87.5 - HYPERKALEMIA Status: Resolved (5) Hyponatremia Code(s): E87.1 - HYPO-OSMOLALITY AND HYPONATREMIA Status: Resolved (6) COPD (chronic obstructive pulmonary disease) Status: Chronic (7) DM2 (diabetes mellitus, type 2) Status: Chronic Qualifiers: (8) HLD (hyperlipidemia) Code(s): E78.5 - HYPERLIPIDEMIA, UNSPECIFIED Status: Chronic Qualifiers: (9) HTN (hypertension) Code(s): I10 - ESSENTIAL (PRIMARY) HYPERTENSION Status: Chronic Qualifiers: (10) Obesity (BMI 30.0-34.9) Code(s): E66.9 - OBESITY, UNSPECIFIED Status: Chronic (11) Tobacco dependence Code(s): F17.200 - NICOTINE DEPENDENCE, UNSPECIFIED, UNCOMPLICATED Status: Chronic - Plan cont current plan of care, continue antibiotics * add metformin on discharge * clindamycin on discharge * medication reviewed as below * symptomatic treatment * will Dc if oral surgeon OK. Review of Systems - Review of Systems Eyes: negative: Pain, Vision Change, Conjunctivae Inflammation, Eyelid Inflammation, Redness, Other ENT: negative: Ear Pain, Ear Discharge, Nose Pain, Nose Discharge, Nose Congestion, Mouth Pain, Mouth Swelling, Throat Pain, Throat Swelling, Other Respiratory: negative: Cough, Dry, Shortness of Breath, Hemoptysis, SOB with Excertion, Pleuritic Pain, Sputum, Wheezing Cardiovascular: negative: chest pain, palpitations, orthopnea, paroxysmal nocturnal dyspnea, edema, light headedness, other Gastrointestinal: negative: Nausea, Vomiting, Abdominal Pain, Diarrhea, Constipation, Melena, Hematochezia, Other Genitourinary: negative: Dysuria, Frequency, Incontinence, Hematuria, Retention , Other Musculoskeletal: negative: Neck Pain, Shoulder Pain, Arm Pain, Back Pain, Hand Pain, Leg Pain, Foot Pain, Other Skin: negative: Rash, Lesions, [place], Bruising, Other - Medications/Allergies Allergies/Adverse Reactions: Allergies Allergy/AdvReac Type Severity Reaction Status Date / Time No Known Allergies Allergy Unverified 07/28/17 04:21 Medications: Current Medications Acetaminophen (Tylenol) 650 mg PO Q4H PRN PRN Reason: Headache/Fever or Mild Pain Hydrocodone Bitart/Acetaminophen ([place] 5/325) 1 tab PO Q4H PRN PRN Reason: Moderate Pain (4-6) Last Admin: 02/04/18 05:55 Dose: 1 tab Al Hydroxide/Mg Hydroxide (Maalox) 15 ml PO Q4H PRN PRN Reason: Heartburn or Indigestion Albuterol Sulfate (Proventil Hfa) 2 puff INH Q4H PRN PRN Reason: SOB &/or Wheezing Albuterol/Ipratropium (Duoneb) 3 ml NEB Q6H PRN PRN Reason: SOB &/or Wheezing Artificial Tears (Tears Renewed 15ml Bottle) 0 drop EA EYE PRN PRN PRN Reason: Dry Eyes Atorvastatin Calcium (Lipitor) 10 mg PO [facility] Last Admin: 02/04/18 21:12 Dose: 10 mg Dextrose/Water (Dextrose 50%) 25 gm SLOW IVP PRN PRN PRN Reason: Hypoglycemia Famotidine (Pepcid) 20 mg PO DAILY COUNT INCLUDES THE [facility] Last Admin: 02/05/18 09:02 Dose: 20 mg Glucagon (Glucagon) 1 mg IM PRN PRN PRN Reason: Hypoglycemia Glyburide (Diabeta) 5 mg PO BID COUNT INCLUDES THE [facility] Last Admin: 02/05/18 09:02 Dose: 5 mg Guaifenesin (Robitussin Sf) 200 mg PO Q4H PRN PRN Reason: Cough Heparin Sodium (Porcine) (Heparin) 5,000 units SC BID COUNT INCLUDES THE [facility] Last Admin: 02/05/18 09:02 Dose: 5,000 units Hydralazine HCl (Apresoline) 10 mg SLOW IVP Q4H PRN PRN Reason: Systolic BP > 180 Ampicillin Sodium/Sulbactam (Sodium 3 gm/ Sodium Chloride) 100 mls @ 200 mls/ hr IVPB Q6HR COUNT INCLUDES THE [facility] Last Admin: 02/05/18 05:53 Dose: 100 mls Dextrose/Water (D5w) 1,000 mls @ 0 mls/hr IV .Q0M PRN; As Directed PRN Reason: Hypoglycemia Insulin Human Lispro (Humalog) 0 units SC .AGGRESSIVE SLIDING PRN PRN Reason: Aggressive Correctional Scale Insulin Human Lispro (Humalog) 0 units SC .BEDTIME SLIDING SC PRN PRN Reason: Bedtime Correctional Scale Last Admin: 02/04/18 21:18 Dose: 2 unit Lisinopril (Zestril) 10 mg PO DAILY COUNT INCLUDES THE [facility] Last Admin: 02/05/18 09:02 Dose: 10 mg Loperamide HCl (Imodium) 2 mg PO PRN PRN PRN Reason: Diarrhea/Loose Stools Loratadine (Claritin) 10 mg PO DAILYPRN PRN PRN Reason: Sinus Symptoms Magnesium Hydroxide (Milk Of Magnesium) 30 ml PO DAILYPRN PRN PRN Reason: Constipation Mineral Oil/White Petrolatum (Eucerin Cream) 0 gm TOP BIDPRN PRN PRN Reason: Dry Skin Morphine Sulfate (Morphine) 2 mg SLOW IVP Q4H PRN PRN Reason: Pain Ondansetron HCl (Zofran Odt) 4 mg PO Q6H PRN PRN Reason: Nausea/Vomiting Last Admin: 02/04/18 05:55 Dose: 4 mg Ondansetron HCl (Zofran) 4 mg IVP Q6H PRN PRN Reason: Nausea/Vomiting Phenol (Chloraseptic [place] 180 Ml Bot) 0 ml PO PRN PRN PRN Reason: Sore Throat Senna (Senokot) 2 tab PO HSPRN PRN PRN Reason: Constipation Sodium Chloride ([place]ake Nasal [place] 0.65%) 0 ml EA NARE QIDPRN PRN PRN Reason: Nasal Congestion Temazepam (Restoril) 15 mg PO HSPRN PRN PRN Reason: Insomnia
[2018-02-05 12:12] VITALS: BP 142/83; TEMP 97.7
--- NOTE | 2018-02-05 13:47 | DIS ---
PRIMARY CARE PHYSICIAN: [facility] DATE OF ADMISSION: 02/02/2018 DATE OF DISCHARGE: 02/05/2018 DISCHARGE DISPOSITION: Home. PRIMARY DISCHARGE DIAGNOSES: 1. Sepsis with acute organ dysfunction. 2. Submandibular abscess, odontogenic origin. 3. Hyperkalemia, resolved. 4. Hyponatremia, resolved. 5. Acute kidney failure, improved. SECONDARY DISCHARGE DIAGNOSES: Tobacco dependence, obesity with BMI 31, hypertension, dyslipidemia, diabetes type 2, chronic obstructive pulmonary disease. PRIMARY PROCEDURE/OPERATION: Dr. Shahram Conklin, dentist, did extraoral incision and drainage of lef t submandibular abscess with surgical extraction of tooth #18. RADIOLOGICAL INVESTIGATION: Soft tissue neck CT scan showed submandibular abscess. SIGNIFICANT LABS: WBC 16.8, hemoglobin 10.8, platelet 202. Sodium 135, potassium 4.8, BUN 41, creat inine 1.05, calcium 8.3. Culture is negative so far. DISCHARGE MEDICATIONS: Clindamycin 300 mg p.o. q.6 hourly for 10 days, Florastor 250 mg p.o. daily, Ventolin HFA 2 puffs q.4h. p.r.n., glyburide 5 mg p.o. b.i.d., lisinopril 10 mg p.o. daily, metformin 500 mg p.o. t.i.d., Zocor 20 mg p.o. at bedtime. CONTRAINDICATIONS: None. CODE STATUS: FULL CODE. INPATIENT CONSULTANTS: Dr. Shahram Conklin, oral surgeon, was consulted while in hospital. TEST RESULTS PENDING ON DISCHARGE: None. ALLERGIES: No known drug allergy. DISCHARGE PLAN: Post hospital, the patient will follow up with the [facility] as well as Dr Jeff Conklin as instructed. HOSPITAL COURSE: A 67-year-old female with above-mentioned medical problem who was admitted by Dr. Austin Smith. Please see her H&P for further details. This patient has poor dentition and she pre sented to the ER with jaw pain and swelling in her submandibular area. The patient had CT soft tissu e neck which showed a submandibular abscess which was mostly originated from the odontogenic process. Oral surgeon was consulted. The patient required incision and drainage as well as tooth extraction , which was done after admission. The patient was treated with Unasyn while in hospital. On dischar ge, we changed to clindamycin. Her culture is negative so far. While in hospital, we provided couns eling to avoid smoking. The patient had primrose drain in place after surgery that was spontaneously removed and the oral gayle geon cleared her for discharge with outpatient followup. The patient also has significant reduced sw elling. While in hospital, she was given Decadron and that is why her blood sugar was high, as well as her WBC count was also high, but that also started improving. Necessary dietary education was giv en while in hospital. The patient is seen and examined at bedside today. Please see my progress note from today for furthe r detail. All new medication prescription sent to her pharmacy.
--- NOTE | 2018-02-06 14:04 | PRG ---
DATE OF SERVICE: 02/04/2018 SUBJECTIVE: The patient was resting comfortably in bed. No acute distress. She reports she is havi ng no pain even without pain medications. Tolerating p.o. intake. which is to be expected sec ondary to the procedure performed. She states overall that her neck is improved. No worsening swell ing over the last night or this morning, and feels that the tension tightness is gone today. No comp laints. OBJECTIVE: VITAL SIGNS: Temperature 97.6, pulse 66, blood pressure 101/69, respirations 20, oxygen saturation 9 6% on room air. LABORATORY DATA: White blood cell count 24.7, elevated from yesterday due to likely of surgical resp onse 198. Cultures reveal moderate gram-positive rods, gram-positive cocci, gram-negative rods . required. I will continue to follow in the a.m. The patient is lying in bed comfortably, no acute distress. 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 Left submandibular edema mildly improved, erythema also resolved, tenderness to likely t o inpatient sweep. There is still purulent drainage actively. Sweeping from the wound become mildly tender to palpation along the left submandibular area as well as inferior border consistent with gayle gical procedure. Range of motion remained of both excellent at this time. There is full range of mo tion. The floor of mouth is soft. The extraction site seems with no intraoral purulence noted . ASSESSMENT: A 68-year-old female postoperative day 1, status post incision and drainage, odontogenic abscess, extraction of tooth #18. PLAN: plan of care was IV Unasyn pending cultures. I will likely discontinue the drain tomorrow. possible discharge within the next day or 2 with continue improvement.
== END 2018-02-05 14:00 | disposition home or self-care (01) | DRG 854 ==
LOC: ERS 18:28 → SURG B 21:50
PROVIDERS: ADMIT Internal Medicine; ATTEND Internal Medicine
PROC: 0W950ZZ Drainage of Lower Jaw, Open Approach (ICD-10-PCS; principal; 2018-02-03)
PROC: 0CDXXZ0 Extraction of Lower Tooth, Single, External Approach (ICD-10-PCS; 2018-02-03)
DX: A41.9 Sepsis, unspecified organism (principal); E87.1 Hypo-osmolality and hyponatremia; N17.9 Acute kidney failure, unspecified; K12.2 Cellulitis and abscess of mouth; E11.22 Type 2 diabetes mellitus with diabetic chronic kidney disease; J44.9 Chronic obstructive pulmonary disease, unspecified; I12.9 Hypertensive chronic kidney disease with stage 1 through stage 4 chronic kidney disease, or unspecified chronic kidney disease; N18.9 Chronic kidney disease, unspecified; E78.5 Hyperlipidemia, unspecified; F17.210 Nicotine dependence, cigarettes, uncomplicated; K03.81 Cracked tooth; R65.20 Severe sepsis without septic shock; E87.5 Hyperkalemia; E66.9 Obesity, unspecified; Z68.31 Body mass index [BMI] 31.0-31.9, adult; Z79.84 Long term (current) use of oral hypoglycemic drugs; Z79.899 Other long term (current) drug therapy
CPT/HCPCS: 36415; 36416; 70491; 80048; 80053; 85025; 85652; 86140; 87070; 87205; 94640; 96365; 96375; J0131; J0295; J1100; J1644; J1885; J2001; J2250; J2405; J2704; J3010; J3490; J7050; J7620; Q0162; S0028

== ENCOUNTER 2018-10-31 11:37 | Emergency (ER) | payer MEDICARE ==
[2018-10-31 12:54] LABS: #Basophils 0.1 thou/uL (0.0-0.2); #Eosinphils 0.1 thou/uL (0.0-0.7); #Lymphocytes 1.7 thou/uL (1.20-3.40); #Monocytes 0.3 thou/uL (0.11-0.59); #Neutrophils 7.7 thou/uL (1.40-6.50); %Basophils 0.7 % (0.0-1.0); %Eosinophils 1.4 % (0.0-10.0); %Lymphocytes 17.2 % (21.0-51.0); %Monocytes 2.9 % (0.0-10.0); %Neutrophils 77.9 % (42.0-75.0); Hemoglobin 15.1 g/dL (12.0-16.0); Mean Corpuscular HGB CONC 32.5 g/dL (32.0-36.0); Mean Corpuscular Hemoglobin 31.2 pg (27.0-31.0); Mean Corpuscular Volume 95.8 fL (78.0-98.0); Mean Platelet Volume 8.9 fL (7.4-10.4); Platelet Count 251 thou/uL (130-400); RBC Distribution Width 11.4 % (11.5-14.5); Red Blood Cell (RBC) Count 4.84 mill/uL (4.20-5.40); White Blood Cell (WBC) Count 9.8 thou/uL (4.8-10.8)
[2018-10-31 13:15] LABS: ALT (SGPT) 9 U/L (8-55); AST (SGOT) 18 U/L (5-34); Albumin 4.2 g/dL (3.4-4.8); Alkaline Phosphatase 91 U/L (40-150); Anion Gap 14 mmol/L (10-20); BUN (Urea Nitrogen) 16 mg/dL (9.8-20.1); Bilirubin, Total 0.4 mg/dL (0.2-1.2); Calc. Creatinine Clearance 0 mL/min (70-130); Calcium 10.1 mg/dL (7.8-10.44); Carbon Dioxide 29 mmol/L (23-31); Chloride 102 mmol/L (98-107); Estimated GFR-MDRD 65; Globulin 3.2 g/dL (2.4-3.5); Glucose 132 mg/dL (80-115); Potassium 4.2 mmol/L (3.5-5.1); Protein, Total 7.4 g/dL (6.0-8.3); Sodium 141 mmol/L (136-145)
[2018-10-31] MEDS ORDERED: Meclizine HCl 25 MG TAB ONE (13:31)
--- NOTE | 2018-10-31 14:03 | CT ---
CT HEAD NONCONTRAST DATE: 10/31/18 HISTORY: Dizziness. Vomiting. FINDINGS: No comparison. There is no evidence of acute intracranial hemorrhage or infarct. Mild chronic ischemic small vessel disease in the frontal white matter. There is no mass effect or shift of midline structures. Ventricl es appear normal in size, shape, and position. IMPRESSION: No acute intracranial abnormalities are demonstrated. POS: [facility]
[2018-10-31 14:24] LABS: Bilirubin Negative (Negative); Blood, Urine Negative (Negative); Clarity CLOUDY (Clear); Glucose, Urine (Dipstick) Negative (Negative); Leukocyte Moderate (Negative); Nitrite Positive (Negative); Protein, Urine (Dipstick) Trace mg/dL (Neg-Trace); Specific Gravity, Urine 1.017 (1.002-1.036); Urobilinogen 0.2 mg/dL (0.2-1.0); pH, Urine 7.5 (5.0-9.0)
[2018-10-31 14:27] LABS: Bacteria/HPF 4+ HPF (None Seen); Hyaline Casts/LPF 4-6 HYALINE CAST LPF (0-3 Hyaline); Pathc Cast-AUWi Flag 1.16 (0-2.49)
== END 2018-10-31 14:40 | disposition home or self-care (01) ==
LOC: ERS 11:37
DX: R42 Dizziness and giddiness (principal); R11.2 Nausea with vomiting, unspecified; F41.9 Anxiety disorder, unspecified; E11.9 Type 2 diabetes mellitus without complications; E78.5 Hyperlipidemia, unspecified; I10 Essential (primary) hypertension; F17.210 Nicotine dependence, cigarettes, uncomplicated; M81.0 Age-related osteoporosis without current pathological fracture
CPT/HCPCS: 36415; 36416; 70450; 80053; 81003; 81015; 85025

== ENCOUNTER 2021-07-04 14:35 | Emergency (ER) | payer MEDICARE ==
[~2021-07-04 14:35] MED LIST changes: -Iopamidol 370 76% 100 ML VIAL ONE; +Iopamidol-370 76% 500 ML 1 ML ONE
[2021-07-04 15:23] LABS: #Basophils 0.1 thou/uL (0.0-0.2); #Eosinphils 0.4 thou/uL (0.0-0.7); #Lymphocytes 2.8 thou/uL (1.20-3.40); #Monocytes 0.5 thou/uL (0.11-0.59); #Neutrophils 3.9 thou/uL (1.40-6.50); %Basophils 1.5 % (0.0-1.0); %Eosinophils 5.4 % (0.0-10.0); %Lymphocytes 36.1 % (21.0-51.0); %Monocytes 6.4 % (0.0-10.0); %Neutrophils 50.6 % (42.0-75.0); Hemoglobin 13.3 g/dL (12.0-16.0); Mean Corpuscular HGB CONC 31.6 g/dL (32.0-36.0); Mean Corpuscular Hemoglobin 30.3 pg (27.0-31.0); Mean Corpuscular Volume 95.9 fL (78.0-98.0); Mean Platelet Volume 8.6 fL (7.4-10.4); Platelet Count 257 thou/uL (130-400); RBC Distribution Width 11.8 % (11.5-14.5); Red Blood Cell (RBC) Count 4.38 mill/uL (4.20-5.40); White Blood Cell (WBC) Count 7.7 thou/uL (4.8-10.8)
[2021-07-04 15:36] LABS: Bacteria/HPF None Seen HPF (None Seen); Bilirubin Negative (Negative); Blood, Urine Negative (Negative); Calcium Oxalate Crystals 3+ HPF (None Seen); Clarity Clear (Clear); Glucose, Urine (Dipstick) Normal (Negative); Ketone, Urine Trace mg/dL (Negative); Leukocyte Negative Leu/uL (Negative); Nitrite Negative (Negative); Protein, Urine (Dipstick) 30 mg/dL (Neg-Trace); RBC/HPF 0-3 HPF (0-3); Squamous Epithelial 0-3 HPF (0-3); Urobilinogen 3 mg/dL (Less than 2); WBC/HPF 0-3 HPF (0-3)
[2021-07-04 15:38] LABS: PTT 27.2 sec (22.9-36.1); Prothrombin Time 13.6 sec (12.0-14.7)
[2021-07-04 15:43] LABS: ALT (SGPT) 10 U/L (8-55); AST (SGOT) 18 U/L (5-34); Albumin 3.7 g/dL (3.4-4.8); Alkaline Phosphatase 102 U/L (40-110); Anion Gap 10 mmol/L (10-20); BUN (Urea Nitrogen) 15 mg/dL (9.8-20.1); Bilirubin, Total 0.6 mg/dL (0.2-1.2); Calc. Creatinine Clearance 0 mL/min (70-130); Calcium 9.4 mg/dL (7.8-10.44); Carbon Dioxide 28 mmol/L (23-31); Chloride 106 mmol/L (98-107); Globulin 2.6 g/dL (2.4-3.5); Glucose 96 mg/dL (80-115); Potassium 3.9 mmol/L (3.5-5.1); Protein, Total 6.3 g/dL (5.8-8.1); Sodium 140 mmol/L (136-145)
[2021-07-04] MEDS ORDERED: Ondansetron PF 4 MG/2 ML Vial ONE (16:17)
== END 2021-07-04 20:20 | disposition home or self-care (01) ==
LOC: ERS 14:35
DX: K62.5 Hemorrhage of anus and rectum (principal); E11.9 Type 2 diabetes mellitus without complications; E78.5 Hyperlipidemia, unspecified; I10 Essential (primary) hypertension; F17.210 Nicotine dependence, cigarettes, uncomplicated
CPT/HCPCS: 36415; 51701; 71045; 74177; 80053; 81003; 81015; 82274; 85025; 85610; 85730; 86850; 86900; 86901; 96374; J2405

== ENCOUNTER 2021-10-26 21:28 | Emergency (ER) | payer MEDICARE ==
[2021-10-26 23:36] LABS: #Lymphocytes 2.5 thou/uL (1.20-3.40); #Monocytes 0.5 thou/uL (0.11-0.59); #Neutrophils 5.7 thou/uL (1.40-6.50); %Basophils 0.5 % (0.0-1.0); %Eosinophils 0.6 % (0.0-10.0); %Lymphocytes 28.7 % (21.0-51.0); %Monocytes 5.2 % (0.0-10.0); %Neutrophils 65.1 % (42.0-75.0); Hemoglobin 13.4 g/dL (12.0-16.0); Mean Corpuscular HGB CONC 31.8 g/dL (32.0-36.0); Mean Corpuscular Hemoglobin 30.6 pg (27.0-31.0); Mean Corpuscular Volume 96.3 fL (78.0-98.0); Mean Platelet Volume 7.8 fL (7.4-10.4); Platelet Count 386 thou/uL (130-400); RBC Distribution Width 12.6 % (11.5-14.5); Red Blood Cell (RBC) Count 4.38 mill/uL (4.20-5.40); White Blood Cell (WBC) Count 8.7 thou/uL (4.8-10.8)
[2021-10-27 00:07] LABS: ALT (SGPT) 13 U/L (8-55); AST (SGOT) 21 U/L (5-34); Albumin 3.4 g/dL (3.4-4.8); Alkaline Phosphatase 70 U/L (40-110); Anion Gap 17 mmol/L (10-20); BUN (Urea Nitrogen) 19 mg/dL (9.8-20.1); Bilirubin, Total 0.3 mg/dL (0.2-1.2); Calc. Creatinine Clearance 0 mL/min (70-130); Calcium 9.1 mg/dL (7.8-10.44); Carbon Dioxide 25 mmol/L (23-31); Chloride 102 mmol/L (98-107); Glucose 214 mg/dL (80-115); Lipase 36 U/L (8-78); Protein, Total 7.4 g/dL (5.8-8.1); Sodium 140 mmol/L (136-145)
[2021-10-27 00:48] LABS: Bacteria/HPF 4+ HPF (None Seen); Bilirubin Negative (Negative); Blood, Urine Negative (Negative); Calcium Oxalate Crystals 3+ HPF (None Seen); Clarity Turbid (Clear); Glucose, Urine (Dipstick) Normal (Negative); Ketone, Urine Negative (Negative); Leukocyte 75 Leu/uL (Negative); Nitrite 1+ (Negative); Protein, Urine (Dipstick) 30 mg/dL (Neg-Trace); Specific Gravity, Urine 1.026 (1.002-1.036); Urobilinogen 3 mg/dL (Less than 2); pH, Urine 5.5 (5.0-9.0)
[2021-10-27] MEDS ORDERED: cefTRIAXone\\ROCEPHIN 1 GM VIAL ONE (01:08)
== END 2021-10-27 03:02 | disposition home or self-care (01) ==
LOC: ERS 21:28
DX: N39.0 Urinary tract infection, site not specified (principal); K44.9 Diaphragmatic hernia without obstruction or gangrene; I10 Essential (primary) hypertension; E11.9 Type 2 diabetes mellitus without complications; E78.5 Hyperlipidemia, unspecified; E78.00 Pure hypercholesterolemia, unspecified; F17.210 Nicotine dependence, cigarettes, uncomplicated
CPT/HCPCS: 74177; 80053; 81003; 81015; 83690; 85025; 87077; 87086; 87186; 96365; 96372; J0500; J0696; Q9967

== ENCOUNTER 2022-02-02 22:06 | Emergency (ER) | payer MEDICARE, OTHER, SELFPAY ==
[2022-02-02 23:02] LABS: #Basophils 0.1 thou/uL (0.0-0.2); #Eosinphils 0.1 thou/uL (0.0-0.7); #Lymphocytes 2.9 thou/uL (1.20-3.40); #Monocytes 0.4 thou/uL (0.11-0.59); %Basophils 0.9 % (0.0-1.0); %Eosinophils 0.9 % (0.0-10.0); %Lymphocytes 34.5 % (21.0-51.0); %Monocytes 4.9 % (0.0-10.0); %Neutrophils 58.7 % (42.0-75.0); Hemoglobin 14.2 g/dL (12.0-16.0); Mean Corpuscular HGB CONC 32.9 g/dL (32.0-36.0); Mean Corpuscular Hemoglobin 32.6 pg (27.0-31.0); Mean Corpuscular Volume 99.1 fL (78.0-98.0); Mean Platelet Volume 8.4 fL (7.4-10.4); Platelet Count 219 thou/uL (130-400); RBC Distribution Width 12.9 % (11.5-14.5); Red Blood Cell (RBC) Count 4.35 mill/uL (4.20-5.40); White Blood Cell (WBC) Count 8.4 thou/uL (4.8-10.8)
[2022-02-02] MEDS ORDERED: Ondansetron PF 4 MG/2 ML Vial ONE (23:07)
[2022-02-02 23:39] LABS: Bacteria/HPF None Seen HPF (None Seen); Bilirubin Negative (Negative); Blood, Urine Negative (Negative); Calcium Oxalate Crystals 4+ HPF (None Seen); Clarity Turbid (Clear); Glucose, Urine (Dipstick) Normal (Negative); Ketone, Urine Negative (Negative); Leukocyte 25 Leu/uL (Negative); Nitrite Negative (Negative); Protein, Urine (Dipstick) 50 mg/dL (Neg-Trace); Specific Gravity, Urine 1.028 (1.002-1.036); WBC/HPF 0-3 HPF (0-3)
[2022-02-02 23:44] LABS: CKMB 2.5 ng/mL (0-6.6)
[2022-02-03 00:14] LABS: Albumin 3.5 g/dL (3.4-4.8)
[2022-02-03 00:15] LABS: Calcium 8.9 mg/dL (7.8-10.44); Chloride 105 mmol/L (98-107); Potassium 3.8 mmol/L (3.5-5.1); Sodium 143 mmol/L (136-145)
[2022-02-03 00:16] LABS: Globulin 2.8 g/dL (2.4-3.5); Glucose 80 mg/dL (80-115); Protein, Total 6.3 g/dL (5.8-8.1)
[2022-02-03 00:18] LABS: Anion Gap 16 mmol/L (10-20); Bilirubin, Total 0.4 mg/dL (0.2-1.2); Carbon Dioxide 26 mmol/L (23-31)
[2022-02-03 00:19] LABS: Alkaline Phosphatase 62 U/L (40-110)
[2022-02-03 00:20] LABS: BUN (Urea Nitrogen) 14 mg/dL (9.8-20.1); Calc. Creatinine Clearance 0 mL/min (70-130)
[2022-02-03 00:21] LABS: AST (SGOT) 26 U/L (5-34)
[2022-02-03 00:22] LABS: ALT (SGPT) 17 U/L (8-55); CK (CPK) 62 U/L (29-168)
[2022-02-03 01:23] LABS: Lipase 43 U/L (8-78)
== END 2022-02-03 02:25 | disposition home or self-care (01) ==
LOC: ERS 22:06
DX: R11.2 Nausea with vomiting, unspecified (principal); R63.4 Abnormal weight loss; E11.9 Type 2 diabetes mellitus without complications; I10 Essential (primary) hypertension; E78.5 Hyperlipidemia, unspecified; E78.00 Pure hypercholesterolemia, unspecified; F17.210 Nicotine dependence, cigarettes, uncomplicated
CPT/HCPCS: 36415; 71045; 80053; 81003; 81015; 82550; 82553; 83690; 83735; 84443; 84484; 85025; 93005; 96374; J2405

== ENCOUNTER 2022-04-13 14:24 | Inpatient (IN) | payer MEDICARE ==
[2022-04-13 14:54] LABS: #Lymphocytes 1.7 thou/uL (1.20-3.40); #Monocytes 0.3 thou/uL (0.11-0.59); #Neutrophils 8.6 thou/uL (1.40-6.50); %Basophils 0.4 % (0.0-1.0); %Eosinophils 0.2 % (0.0-10.0); %Lymphocytes 16.2 % (21.0-51.0); %Neutrophils 80.3 % (42.0-75.0); Hemoglobin 14.4 g/dL (12.0-16.0); Mean Corpuscular HGB CONC 31.7 g/dL (32.0-36.0); Mean Platelet Volume 8.3 fL (7.4-10.4); Platelet Count 333 thou/uL (130-400); RBC Distribution Width 12.3 % (11.5-14.5); White Blood Cell (WBC) Count 10.7 thou/uL (4.8-10.8)
[2022-04-13 15:13] LABS: ALT (SGPT) 28 U/L (8-55); AST (SGOT) 37 U/L (5-34); Albumin 3.2 g/dL (3.4-4.8); Alkaline Phosphatase 78 U/L (40-110); Anion Gap 12 mmol/L (10-20); BUN (Urea Nitrogen) 37 mg/dL (9.8-20.1); Bilirubin, Total 0.6 mg/dL (0.2-1.2); Calc. Creatinine Clearance 0 mL/min (70-130); Calcium 9.3 mg/dL (7.8-10.44); Carbon Dioxide 35 mmol/L (23-31); Chloride 102 mmol/L (98-107); Estimated GFR 77; Globulin 3.1 g/dL (2.4-3.5); Glucose 91 mg/dL (80-115); Lipase 23 U/L (8-78); Protein, Total 6.3 g/dL (5.8-8.1); Sodium 145 mmol/L (136-145)
[2022-04-13] MEDS ORDERED: Morphine 4 MG/ML VIAL ONE (18:53)
[2022-04-13] MEDS ORDERED: Ondansetron PF 4 MG/2 ML Vial ONE (18:53)
[2022-04-13 20:48] LABS: SARS-CoV-2 NAA Rapid Test Not Detected (NotDetected)
[2022-04-13] MEDS: Lactated Ringer's 1,000 ML IV SCH (20:59)
[2022-04-13 21:15] VITALS: BMI 15.2
[2022-04-14] MEDS ORDERED: ISOVUE-370 76%-LOCM 1 ML ONE (08:00)
[2022-04-14] MEDS ORDERED: Iopamidol 370 76% 100 ML VIAL ONE (08:00)
[2022-04-14] MEDS ORDERED: Enoxaparin Sodium 30 MG/0.3 ML SYRINGE SC SCH (09:00)
[2022-04-14] MEDS: Nicotine 21 MG PATCH TD SCH ×2 (09:58→15:45)
[2022-04-14] MEDS: Lactated Ringer's 1,000 ML IV SCH (09:59)
[2022-04-14] MEDS: Dextrose 5%-Lactated Ringers 1,000 ML IV SCH (10:09)
[2022-04-14] MEDS ORDERED: Ondansetron PF 4 MG/2 ML Vial IVP SCH (13:30)
[2022-04-14] MEDS ORDERED: Promethazine HCl 12.5 MG in Sodium Chloride 0.9% 50 ML IVPB PRN (15:48)
[2022-04-14] MEDS ORDERED: ceFAZolin 2 GM/Dextrose 50 ML 2 GM in Premix Bag 1 BAG IVPB SCH (16:30)
[2022-04-14] MEDS ORDERED: CEFAZOLIN 2 GM VIAL IVPB SCH ×2 (16:45)
[2022-04-14] MEDS ORDERED: Promethazine 25 MG TAB PO PRN (17:50)
[2022-04-14] MEDS ORDERED: Promethazine HCl 25 MG SUPP PR PRN (17:50)
[2022-04-15] MEDS: Dextrose 5%-Lactated Ringers 1,000 ML IV SCH ×2 (04:30→12:10)
[2022-04-15 05:59] LABS: Phosphorus 2.6 mg/dL (2.3-4.7)
[2022-04-15 06:13] LABS: Anion Gap 13 mmol/L (10-20); BUN (Urea Nitrogen) 33 mg/dL (9.8-20.1); Calc. Creatinine Clearance 37 mL/min (70-130); Calcium 9.1 mg/dL (7.8-10.44); Carbon Dioxide 30 mmol/L (23-31); Chloride 107 mmol/L (98-107); Estimated GFR 79; Glucose 123 mg/dL (80-115); Potassium 3.7 mmol/L (3.5-5.1); Sodium 146 mmol/L (136-145)
[2022-04-15] MEDS ORDERED: fentaNYL Citrate/PF 100 MCG/2 ML SYRINGE ONE (09:06)
[2022-04-15] MEDS ORDERED: Sodium Chloride 0.9% 100 ML ONE (09:11)
[2022-04-15] MEDS ORDERED: CEFAZOLIN 2 GM VIAL ONE (09:11)
[2022-04-15] MEDS ORDERED: Acetaminophen 650 MG Suppository PR PRN (09:11)
[2022-04-15] MEDS ORDERED: Ondansetron PF 4 MG/2 ML Vial ONE (09:21)
[2022-04-15] MEDS ORDERED: PROPOFOL 200 MG/20 ML VIAL ONE (09:21)
[2022-04-15] MEDS ORDERED: Phenylephrine 10 MG/ML VIAL ONE (09:21)
[2022-04-15] MEDS ORDERED: Esmolol 100 MG/10 ML VIAL ONE (09:21)
[2022-04-15] MEDS ORDERED: Lidocaine 1% PF 5 ML VIAL ONE (09:21)
[2022-04-15] MEDS ORDERED: Rocuronium Bromide 10 MG/ML (10ML VIAL) ONE (09:21)
[2022-04-15] MEDS ORDERED: ePHEDrine 50 MG/ML VIAL ONE (09:21)
[2022-04-15] MEDS ORDERED: Lidocaine 1% w/Epinephrine 1:100K 20 ML VIAL ONE (09:38)
[2022-04-15] MEDS ORDERED: Bupivacaine 0.25% HCL 30 ML VIAL ONE (09:38)
[2022-04-15] MEDS: Nicotine 21 MG PATCH TD SCH (09:39)
[2022-04-15] MEDS ORDERED: SUGAMMADEX SODIUM 200 MG/2 ML VIAL ONE (10:12)
[2022-04-16] MEDS: Hydrocodone-Acetamin 15 ML UDCUP PER TUBE PRN ×3 (00:23→15:38)
[2022-04-16] MEDS: Dextrose 5%-Lactated Ringers 1,000 ML IV SCH ×2 (00:29→13:33)
[2022-04-16] MEDS: Nicotine 21 MG PATCH TD SCH (09:11)
[2022-04-16] MEDS: Scopolamine 1.5 mg/72 hour Patch TD SCH (23:10)
[2022-04-17] MEDS: Dextrose 5%-Lactated Ringers 1,000 ML IV SCH ×2 (04:33→17:44)
[2022-04-17] MEDS: Nicotine 21 MG PATCH TD SCH (10:20)
[2022-04-17] MEDS: Hydrocodone-Acetamin 15 ML UDCUP PER TUBE PRN ×2 (10:36→18:06)
[2022-04-18] MEDS: Dextrose 5%-Lactated Ringers 1,000 ML IV SCH ×2 (04:28→20:50)
[2022-04-18 11:08] LABS: Hemoglobin 15.6 g/dL (12.0-16.0); Mean Corpuscular HGB CONC 31.1 g/dL (32.0-36.0); Mean Corpuscular Hemoglobin 31.8 pg (27.0-31.0); Mean Platelet Volume 9.1 fL (7.4-10.4); Platelet Count 249 thou/uL (130-400); RBC Distribution Width 12.5 % (11.5-14.5); Red Blood Cell (RBC) Count 4.92 mill/uL (4.20-5.40); White Blood Cell (WBC) Count 18.5 thou/uL (4.8-10.8)
[2022-04-18] MEDS: Nicotine 21 MG PATCH TD SCH (11:26)
[2022-04-18 11:31] LABS: ALT (SGPT) 18 U/L (8-55); AST (SGOT) 28 U/L (5-34); Albumin 2.9 g/dL (3.4-4.8); Alkaline Phosphatase 70 U/L (40-110); Anion Gap 11 mmol/L (10-20); BUN (Urea Nitrogen) 26 mg/dL (9.8-20.1); Bilirubin, Total 0.6 mg/dL (0.2-1.2); Calc. Creatinine Clearance 44 mL/min (70-130); Calcium 8.7 mg/dL (7.8-10.44); Carbon Dioxide 36 mmol/L (23-31); Chloride 102 mmol/L (98-107); Estimated GFR 94; Glucose 88 mg/dL (80-115); Potassium 3.2 mmol/L (3.5-5.1); Protein, Total 5.9 g/dL (5.8-8.1); Sodium 146 mmol/L (136-145)
[2022-04-18] MEDS ORDERED: Potassium Chloride 20 MEQ TAB PER TUBE SCH (12:00)
[2022-04-18 12:12] LABS: Band 14 % (5-11); Lymphocytes 11 % (21-51); MDiff Complete? YES; Neutrophil 75 % (42-75); Platelet Morphology Comment Appears Adequate; RBC Morphology Normal
[2022-04-18] MEDS ORDERED: BIOTENE MOUTH SPRAY 44.3 ML FS PRN (16:00)
[2022-04-18] MEDS: Ondansetron PF 4 MG/2 ML Vial IVP SCH ×2 (16:54→22:28)
[2022-04-18] MEDS ORDERED: Potassium ACETATE 40 MEQ/20 ML VIAL IV SCH (21:30)
[2022-04-18] MEDS ORDERED: SODIUM CHLORIDE 0.9% IV SCH (22:00)
[2022-04-18] MEDS ORDERED: POTASSIUM ACETATE IV SCH (22:00)
[2022-04-18] MEDS ORDERED: Potassium Chloride 20 MEQ in Premix Bag 1 BAG IVPB SCH (22:00)
[2022-04-19] MEDS: Hydrocodone-Acetamin 15 ML UDCUP PER TUBE PRN ×2 (02:32→20:24)
[2022-04-19] MEDS: Ondansetron PF 4 MG/2 ML Vial IVP SCH ×4 (04:43→23:55)
[2022-04-19 05:06] LABS: #Basophils 0.1 thou/uL (0.0-0.2); #Lymphocytes 2.2 thou/uL (1.20-3.40); #Monocytes 0.4 thou/uL (0.11-0.59); #Neutrophils 13.9 thou/uL (1.40-6.50); %Basophils 0.4 % (0.0-1.0); %Eosinophils 0.1 % (0.0-10.0); %Lymphocytes 13.3 % (21.0-51.0); %Monocytes 2.6 % (0.0-10.0); %Neutrophils 83.6 % (42.0-75.0); Hemoglobin 14.2 g/dL (12.0-16.0); Mean Corpuscular HGB CONC 31.8 g/dL (32.0-36.0); Mean Corpuscular Hemoglobin 31.8 pg (27.0-31.0); Mean Platelet Volume 8.3 fL (7.4-10.4); Platelet Count 252 thou/uL (130-400); RBC Distribution Width 12.5 % (11.5-14.5); Red Blood Cell (RBC) Count 4.47 mill/uL (4.20-5.40); White Blood Cell (WBC) Count 16.6 thou/uL (4.8-10.8)
[2022-04-19 05:25] LABS: Anion Gap 14 mmol/L (10-20); BUN (Urea Nitrogen) 34 mg/dL (9.8-20.1); Calc. Creatinine Clearance 37 mL/min (70-130); Calcium 8.6 mg/dL (7.8-10.44); Carbon Dioxide 33 mmol/L (23-31); Chloride 103 mmol/L (98-107); Estimated GFR 82; Glucose 85 mg/dL (80-115); Potassium 3.6 mmol/L (3.5-5.1); Sodium 146 mmol/L (136-145)
[2022-04-19] MEDS: Dextrose 5%-Lactated Ringers 1,000 ML IV SCH ×2 (11:15→22:11)
[2022-04-19] MEDS: Nicotine 21 MG PATCH TD SCH (11:15)
[2022-04-19] MEDS ORDERED: Ondansetron PF 4 MG/2 ML Vial IVP SCH (20:05)
[2022-04-19] MEDS: Scopolamine 1.5 mg/72 hour Patch TD SCH (23:59)
[2022-04-20] MEDS: Ondansetron PF 4 MG/2 ML Vial IVP SCH ×4 (04:50→21:29)
[2022-04-20] MEDS: Hydrocodone-Acetamin 15 ML UDCUP PER TUBE PRN ×3 (05:01→21:28)
[2022-04-20 08:49] LABS: Anion Gap 17 mmol/L (10-20); BUN (Urea Nitrogen) 44 mg/dL (9.8-20.1); Calc. Creatinine Clearance 33 mL/min (70-130); Calcium 8.6 mg/dL (7.8-10.44); Carbon Dioxide 24 mmol/L (23-31); Chloride 106 mmol/L (98-107); Estimated GFR 70; Glucose 154 mg/dL (80-115); Potassium 4.4 mmol/L (3.5-5.1); Sodium 143 mmol/L (136-145)
[2022-04-20] MEDS: Nicotine 21 MG PATCH TD SCH (09:24)
[2022-04-20] MEDS ORDERED: clonazePAM 0.5 MG TAB PO PRN (11:27)
[2022-04-20] MEDS ORDERED: Thiamine HCl 200 MG/2 ML VIAL SLOW IVP SCH (16:00)
[2022-04-20 20:49] VITALS: BP 155/90; TEMP 98.4
[2022-04-21] MEDS: Dextrose 5%-Lactated Ringers 1,000 ML IV SCH ×3 (00:18→07:25)
[2022-04-21] MEDS: Ondansetron ORAL SOLN. 4 MG/5 ML UDCUP PER TUBE SCH ×2 (03:51→09:11)
[2022-04-21] MEDS: Hydrocodone-Acetamin 15 ML UDCUP PER TUBE PRN (03:52)
[2022-04-21 05:55] LABS: Anion Gap 17 mmol/L (10-20); BUN (Urea Nitrogen) 41 mg/dL (9.8-20.1); Calc. Creatinine Clearance 39 mL/min (70-130); Calcium 8.3 mg/dL (7.8-10.44); Carbon Dioxide 27 mmol/L (23-31); Chloride 104 mmol/L (98-107); Estimated GFR 86; Glucose 169 mg/dL (80-115); Potassium 3.7 mmol/L (3.5-5.1); Sodium 144 mmol/L (136-145)
[2022-04-21] MEDS: Nicotine 21 MG PATCH TD SCH (09:10)
== END 2022-04-21 13:25 | disposition home health service (06) | DRG 374 ==
LOC: ERS 14:24 → MSONC 17:28
PROVIDERS: ADMIT Family Medicine; ATTEND Family Medicine
PROC: 0DHA0UZ Insertion of Feeding Device into Jejunum, Open Approach (ICD-10-PCS; principal; 2022-04-15)
DX: C15.5 Malignant neoplasm of lower third of esophagus (principal); E43 Unspecified severe protein-calorie malnutrition; R64 Cachexia; Z68.1 Body mass index [BMI] 19.9 or less, adult; Z51.5 Encounter for palliative care; Z20.822 Contact with and (suspected) exposure to COVID-19; R13.10 Dysphagia, unspecified; E11.9 Type 2 diabetes mellitus without complications; E78.5 Hyperlipidemia, unspecified; M81.0 Age-related osteoporosis without current pathological fracture; F41.9 Anxiety disorder, unspecified; K22.2 Esophageal obstruction; K21.9 Gastro-esophageal reflux disease without esophagitis; F32.A Depression, unspecified; F17.210 Nicotine dependence, cigarettes, uncomplicated; E87.6 Hypokalemia; Z79.899 Other long term (current) drug therapy; Z90.710 Acquired absence of both cervix and uterus
CPT/HCPCS: 36415; 71045; 71260; 74177; 80048; 80053; 83690; 83735; 84100; 85025; 93005; 96361; 96374; 96375; J0690; J2270; J2370; J2405; J2550; J2704; J3411; J3480; J3490; J7120; Q0162; Q9966; Q9967; S0020; U0002; U0003; U0005